=== PATIENT | female | born 1985 | race Caucasian/White ===

== ENCOUNTER 2018-11-09 12:52 | Emergency (ER) | payer MEDICAID ==
--- NOTE | 2018-11-09 14:41 | EDM.PDOC ---
ED HPI GENERAL MEDICAL PROBLEM - General Chief Complaint: Skin Complaint Stated Complaint: ABD PAIN AND INFECTION Time Seen by Provider: 11/09/18 14:05 Source of Information: Reports: Patient History Limitations: Reports: No Limitations - History of Present Illness INITIAL COMMENTS - FREE TEXT/NARRATIVE: c/o nonhealing skin wound pt at [facility] for TVR on 10-02-18, surgical drains pulled 3-4d later, still has open sores at sites of drains, saw her PCP in [place] 1w ago who rx'ed Bactrim and levo, still as 2-3d left of meds PCP reported cx positive for staph and strep pt says that she was getting better, now inc'd redness x 2d no active drainage pt had endocarditis, was in hospital 11/26 x 2.5m in [place], had MV replaced and a ring placed around TV however still had a "hole" in her TV which [place] then replaced 6w ago no infection since d/c from [place] 01/26 does not need INR checked today, "just done" - Related Data Allergies Allergy/AdvReac Type Severity Reaction Status Date / Time azithromycin Allergy Diarrhea Verified 11/09/18 13:20 [From Zithromax Z-Raza] Home Meds: Home Meds Butalbital/Aspirin/Caffeine [Fiorinal 50-325-40 MG] 1 each PO DAILY 12/19/13 [ History] DULoxetine [Cymbalta] 30 mg PO DAILY 12/19/13 [History] Gabapentin [Neurontin] 400 mg PO QID 12/19/13 [History] Acetaminophen [Tylenol Extra Strength] 100 mg PO Q8HR PRN 11/09/18 [History] Ergocalciferol (Vitamin D2) [Vitamin D2] 2,000 units PO DAILY 11/09/18 [History] Levofloxacin 500 mg PO DAILY 11/09/18 [History] Methocarbamol 500 mg PO Q12HR 11/09/18 [History] QUEtiapine Fumarate [Quetiapine Fumarate] 25 mg PO BID 11/09/18 [History] QUEtiapine [SEROquel XR] 150 mg PO DAILY 11/09/18 [History] Sulfamethoxazole/Trimethoprim [Bactrim Ds Tablet] 1 tab PO BID 11/09/18 [History ] Warfarin Sodium 2.5 mg PO DAILY 11/09/18 [History] Past Medical History Cardiovascular History: Reports: Bypass Other Cardiovascular History: 10/07/18 [employer] History: Reports: Social & Family History - Family History Family Medical History: Noncontributory - Tobacco Use Smoking Status *Q: Current Every Day Smoker Years of Tobacco use: 17 Packs/Tins Daily: 0.5 Second Hand Smoke Exposure: Yes - Caffeine Use Caffeine Use: Reports: Soda - Recreational Drug Use Recreational Drug Use: No ED ROS GENERAL - Review of Systems Review Of Systems: See Below Constitutional: Reports: No Symptoms HEENT: Reports: No Symptoms Respiratory: Reports: No Symptoms Cardiovascular: Reports: No Symptoms Endocrine: Reports: No Symptoms GI/Abdominal: Reports: No Symptoms : Reports: No Symptoms Musculoskeletal: Reports: No Symptoms Skin: Reports: Wound Neurological: Reports: No Symptoms Psychiatric: Reports: No Symptoms Hematologic/Lymphatic: Reports: No Symptoms Immunologic: Reports: No Symptoms ED EXAM, SKIN/RASH Exam: See Below Exam Limited By: No Limitations General Appearance: Alert, WD/WN, Anxious Ears: Normal External Exam Nose: Normal Inspection Psychiatric: Other (there are superficial 1 x 0.4 cm adjacent drain sites with dry granulation at base an 0.3 cm hypertrophic edges with slight redness c/w friction and/or excoriation, no clinical evidence of infection, nonhealing d/t ongoing irritation) Course - Vital Signs Last Recorded V/S: Last Vital Signs Temp 37.0 C 11/09/18 13:00 Pulse 120 H 11/09/18 13:00 Resp 18 11/09/18 13:00 BP 148/87 H 11/09/18 13:00 Pulse Ox 96 11/09/18 13:00 Departure - Departure Time of Disposition: 14:34 Disposition: Home, Self-Care 01 Condition: Good Clinical Impression: Nonhealing surgical wound - Discharge Information *PRESCRIPTION DRUG MONITORING PROGRAM REVIEWED*: Not Applicable *COPY OF PRESCRIPTION DRUG MONITORING REPORT IN PATIENT JOLLY: Not Applicable Referrals: Kelsie Aragon PA-C [Primary Care Provider] - Additional Instructions: Continue current meds. Keep surgical sites on abdomen covered with a large dressing for the next 10-14 days to prevent friction from clothing. May use baby oil, olive oil and or a moisturizer once a day to keep the skin soft. No soap or other chemicals. See your doctor in 2 weeks.
== END 2018-11-09 14:45 | disposition home or self-care (01) ==
LOC: FB.ED 12:52
DX: T81.89XA Other complications of procedures, not elsewhere classified, initial encounter (principal); Z95.2 Presence of prosthetic heart valve; Z98.890 Other specified postprocedural states
CPT/HCPCS: 99282

== ENCOUNTER 2018-11-14 18:32 | Emergency (ER) | payer MEDICAID ==
[2018-11-14] MEDS ORDERED: Doxycycline 100 MG Tab PO ONE ×2 (18:33→19:15)
[2018-11-14] MEDS ORDERED: Sulfamethoxazole/Trimethoprim 800-160 MG Tab PO ONE ×2 (18:33→19:15)
--- NOTE | 2018-11-14 19:14 | EDM.PDOC ---
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 Skin Cx shower Staff and strep. She was given Levaquin and Bactrim and the infection improved. Today, Pt came to the ed because of a circular infection with a necrotic center at her right lower extremity. 8 cm proximal of her right ankle, lateral aspect. No F/C no N/V/D no Dizziness or any other acute medical issues. Pt finished her last does of Abx 3 days ago. Pt is off drugs since 04/2018. BP 129/73 Pulse 90 RR 16 Pulse ox 98% on RA Temp 35.9 Onset Date: 11/12/18 Onset Time: 07:00 Duration: Day(s):, Getting Worse, Intermittent Location: Reports: Lower Extremity, Right (lateral aspect) Quality: Reports: Dull Severity: Mild Improves with: Reports: Rest Worsens with: Reports: Movement Context: Reports: Other (foliculitis, ) Associated Symptoms: Reports: No Other Symptoms right leg Pain Score (Numeric/FACES): 8 - Related Data Allergies Allergy/AdvReac Type Severity Reaction Status Date / Time azithromycin Allergy Diarrhea Verified 11/14/18 18:47 [From Zithromax Z-Raza] Home Meds: Home Meds Butalbital/Aspirin/Caffeine [Fiorinal 50-325-40 MG] 1 each PO DAILY 12/19/13 [ History] DULoxetine [Cymbalta] 30 mg PO DAILY 12/19/13 [History] Gabapentin [Neurontin] 400 mg PO QID 12/19/13 [History] Acetaminophen [Tylenol Extra Strength] 100 mg PO Q8HR PRN 11/09/18 [History] Ergocalciferol (Vitamin D2) [Vitamin D2] 2,000 units PO DAILY 11/09/18 [History] Methocarbamol 500 mg PO Q12HR 11/09/18 [History] QUEtiapine Fumarate [Quetiapine Fumarate] 25 mg PO BID 11/09/18 [History] QUEtiapine [SEROquel XR] 150 mg PO DAILY 11/09/18 [History] Warfarin Sodium 2.5 mg PO DAILY 11/09/18 [History] Doxycycline [Vibramycin] 100 mg PO BID #20 cap 11/14/18 [Rx] Sulfamethoxazole/Trimethoprim [Bactrim Ds Tablet] 1 each PO BID #20 tablet 11/14 [Rx] Past Medical History Cardiovascular History: Reports: Bypass Other Cardiovascular History: 10/07/18 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 CHEF History: Reports: Social & Family History - Family History Family Medical History: Noncontributory - Tobacco Use Smoking Status *Q: Current Every Day Smoker Years of Tobacco use: 20 Packs/Tins Daily: 0.5 - Caffeine Use Caffeine Use: Reports: Coffee - Recreational Drug Use Recreational Drug Use: Yes Recreational Drug Type: Reports: Methamphetamine Recreational Drug Use Frequency: Not Used In Over 6 Months ED ROS GENERAL - Review of Systems Review Of Systems: See Below Constitutional: Reports: No Symptoms HEENT: Reports: No Symptoms Respiratory: Reports: No Symptoms Cardiovascular: Reports: No Symptoms Endocrine: Reports: No Symptoms GI/Abdominal: Reports: No Symptoms : Reports: No Symptoms Musculoskeletal: Reports: No Symptoms Skin: Reports: Wound (right lower leg) Neurological: Reports: No Symptoms Psychiatric: Reports: No Symptoms Hematologic/Lymphatic: Reports: No Symptoms Immunologic: Reports: No Symptoms ED EXAM, SKIN/RASH Exam: See Below Exam Limited By: No Limitations General Appearance: Alert, WD/WN, Mild Distress Eye Exam: Bilateral Eye: Normal Inspection Ears: Normal External Exam Nose: Normal Inspection Throat/Mouth: Normal Lips, Normal Voice, No Airway Compromise, Other (poor dentition) Head: Atraumatic, Normocephalic Neck: Normal Inspection, Supple, Non-Tender Respiratory/Chest: No Respiratory Distress, Lungs Clear, Normal Breath Sounds Cardiovascular: Normal Peripheral Pulses, Regular Rate, Rhythm, No Edema, No Gallop GI/Abdominal: Normal Bowel Sounds, Soft, Non-Tender, No Organomegaly, No Distention, No Abnormal Bruit, No Mass, Pelvis Stable (Female) Exam: Deferred Rectal (Female) Exam: Deferred Back Exam: Normal Inspection, Full Range of Motion Extremities: Normal Inspection, Normal Range of Motion Neurological: Alert, Oriented, CN II-XII Intact, Normal Cognition, Normal Gait Psychiatric: Normal Affect, Normal Mood Skin: Warm, Dry, Normal Color, Wound/Incision (folicilar ) Location, Skin: Lower Extremity, Right Characteristics: Fine, Other (foliculitical) Lymphatic: No Adenopathy Course - Vital Signs Text/Narrative:: 33 y.o.w.f with a 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 Skin Cx shower Staff and strep. She was given Levaquin and Bactrim and the infection improved. Today, Pt came to the ed because of a circular infection with a necrotic center at her right lower extremity. 8 cm proximal of her right ankle, lateral aspect. No F/C no N/V/D no Dizziness or any other acute medical issues. Pt finished her last does of Abx 3 days ago. BP 129/73 Pulse 90 RR 16 Pulse ox 98% on RA Temp 35.9 PE: WNWD female, Poor dentition, well healing surgical sites at her abd. wall. Folliculitis with a necrotic center right lower leg, 8 cm prox of right ankle. Off drugs since 04/2018 Imaging not indicated Labs: Wound Culture/ gram stain sent Impression: Folliculitis right lower leg, H/O IVDA. H/O Endocarditis Tx: Bactrim, Diverticulitis, wound care.TD immunization Reexam: Improved Plan: D/C with instructions Last Recorded V/S: Last Vital Signs Temp 35.6 C 11/14/18 18:38 Pulse 90 11/14/18 18:38 Resp 16 11/14/18 18:38 BP 129/73 11/14/18 18:38 Pulse Ox 98 11/14/18 18:38 - Orders/Labs/Meds Orders: Active Orders 24 hr Category Date Time Status Vaccines to be Administered [RC] PER UNIT ROUTINE Care 11/14/18 19:19 Active CULTURE ROUTINE + SMEAR [RM] Stat Lab 11/14/18 19:04 Received Meds: Medications Discontinued Medications Generic Name Dose Route Start Last Admin Trade Name Freq PRN Reason Stop Dose Admin Diphtheria/Tetanus/Acell Pertussis 0.5 ml 11/14/18 19:19 11/14/18 19:22 Adacel IM 11/14/18 19:20 0.5 ml .ONCE ONE Administration Doxycycline Hyclate 100 mg 11/14/18 19:15 11/14/18 19:22 Vibra-Tabs PO 11/14/18 19:16 100 mg ONETIME ONE Administration Trimethoprim/Sulfamethoxazole 1 tab 11/14/18 19:15 11/14/18 19:22 Septra Ds PO 11/14/18 19:16 1 tab ONETIME ONE Administration Departure - Departure Time of Disposition: 19:16 Disposition: Home, Self-Care 01 Condition: Good Clinical Impression: H/O drug abuse, H/O bacterial endocarditis, Folliculitis - Discharge Information Prescriptions: Doxycycline [Vibramycin] 100 mg PO BID #20 cap Sulfamethoxazole/Trimethoprim [Bactrim Ds Tablet] 1 each PO BID #20 tablet Instructions: Doxycycline tablets or capsules, Sulfamethoxazole; Trimethoprim, [id number]-[id number] tablets Referrals: Kelsie Aragon PA-C [Primary Care Provider] - Forms: ED Department Discharge Additional Instructions: Please keep the wound dry and clean with soap and water, please keep the wound open at night, take the meds as recommended, please f/u, come back if your symptoms get worse acutely. Please get your INR level checked in 3-4 days. - My Orders Last 24 Hours: My Active Orders 11/14/18 19:04 CULTURE ROUTINE + SMEAR [RM] Stat 11/14/18 19:19 Vaccines to be Administered [RC] PER UNIT ROUTINE - Assessment/Plan Last 24 Hours: My Active Orders 11/14/18 19:04 CULTURE ROUTINE + SMEAR [RM] Stat 11/14/18 19:19 Vaccines to be Administered [RC] PER UNIT ROUTINE
[2018-11-14] MEDS ORDERED: Diphtheria,Pertussis(Acell),Tetanus Vaccine 0.5 ML SDV IM ONE (19:19)
== END 2018-11-14 20:08 | disposition home or self-care (01) ==
LOC: FB.ED 18:32
DX: L73.9 Follicular disorder, unspecified (principal); F17.210 Nicotine dependence, cigarettes, uncomplicated; Z88.1 Allergy status to other antibiotic agents; Z79.899 Other long term (current) drug therapy; Z23 Encounter for immunization
CPT/HCPCS: 87070; 87077; 87205; 90471; 90715; 99283; A9270

== ENCOUNTER 2018-11-22 18:16 | Emergency (ER) | payer MEDICAID ==
--- NOTE | 2018-11-22 19:28 | EDM.PDOC ---
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 She had complications of staph and strep from her chest tubes sites and was sent home on doxycycline postoperatively after the hog valve was placed. This was followed by TMP-SMX, and clindamycin tid was strated 11/15/18. Today she talked to her doctor, Kelsie Patiño in [place]. She was advised to be seen in the hospital because her heart rate was fast, 120. Yesterday and today she had 2-3 bouts of nonbloody diarrhea (concern for CDiff with 3 month of antibiotic. The past 2 days she has had an unproductive cough, experienced mild anorexia slight lightheadedness and feels weak. She is attended by her mother. At 1830 odered a influenza test. Further history patient was on repirator sfor 3 months with her severe sepsis/ endocarditis had to learn to walk all over again after she had her heart valve replaced. Treatments BUYERS' AGENT: Reports: Acetaminophen Headache with body aches Pain Score (Numeric/FACES): 10 - Related Data Allergies Allergy/AdvReac Type Severity Reaction Status Date / Time azithromycin Allergy Diarrhea Verified 11/22/18 18:39 [From Zithromax Z-Raza] Home Meds: Home Meds DULoxetine [Cymbalta] 30 mg PO DAILY 12/19/13 [History] Gabapentin [Neurontin] 300 mg PO TID 12/19/13 [History] Acetaminophen [Tylenol Extra Strength] 1,000 mg PO Q8HR PRN 11/09/18 [History] Ergocalciferol (Vitamin D2) [Vitamin D2] 2,000 units PO DAILY 11/09/18 [History] Methocarbamol 500 mg PO Q12HR 11/09/18 [History] QUEtiapine Fumarate [Quetiapine Fumarate] 25 mg PO BID 11/09/18 [History] QUEtiapine [SEROquel XR] 150 mg PO BEDTIME 11/09/18 [History] Warfarin Sodium 2.5 mg PO DAILY 11/09/18 [History] Clindamycin HCl 300 mg TID 11/22/18 [History] Guaifenesin/Pseudoephedrne HCl [Hm Mucus Rlf D ER 600-60 mg Tb] 1 each PO BID PRN 11/22/18 [History] Past Medical History Cardiovascular History: Reports: Bacterial Endocarditis, Blood Clots/VTE/DVT, Heart Valve Replacement, Other (See Below) Other Cardiovascular History: endocarditis 11/2016, open heart surgery 10/07/18 Respiratory History: Reports: PE Gastrointestinal History: Reports: GERD, Hepatitis, Other (See Below) Other Gastrointestinal History: Hepatitis C Genitourinary History: Reports: Acute Renal Failure, Dialysis, Renal Disease Other Genitourinary History: has had dialysis in past approx 1hr ago. CAMERA PERSON History: Reports: Other CAMERA PERSON History: Musculoskeletal History: Reports: Arthritis, Fibromyalgia Neurological History: Reports: CVA, Migraines Other Neuro History: 4 mini strokes Psychiatric History: Reports: ADHD, Addiction, Anxiety, Bipolar, Depression, Psych Hospitalization(s), Suicide Attempt Endocrine/Metabolic History: Reports: Hypothyroidism Hematologic History: Reports: Anticoagulation Therapy, Blood Transfusion(s) Dermatologic History: Reports: Cellulitis - Infectious Disease History Infectious Disease History: Reports: Chicken Pox, Hepatitis C, MRSA - Past Surgical History HEENT Surgical History: Reports: Oral Surgery Cardiovascular Surgical History: Reports: Vascular Surgery GI Surgical History: Reports: Colonoscopy, EGD, Other (See Below) Other GI Surgeries/Procedures: ascites Musculoskeletal Surgical History: Reports: None Social & Family History - Family History Family Medical History: Noncontributory - Tobacco Use Smoking Status *Q: Current Every Day Smoker Years of Tobacco use: 12 Packs/Tins Daily: 0.5 - Caffeine Use Caffeine Use: Reports: Energy Drinks, Soda - Recreational Drug Use Recreational Drug Use: Yes Recreational Drug Type: Reports: Methamphetamine Other Recreational Drug Type: quit 2017 ED ROS GENERAL - Review of Systems Review Of Systems: ROS reveals no pertinent complaints other than HPI. ED EXAM, GENERAL - Physical Exam Exam: See Below Free Text/Narrative:: Pleasant edentulous woman attended by her mother who looks slightly sick. No shortness of breath or chest pain or edema of her ankles or rashes. Exam Limited By: No Limitations General Appearance: Alert, Mild Distress Eye Exam: Bilateral Eye: Normal Inspection Ears: Normal External Exam, Normal Canal, Hearing Grossly Normal, Normal TMs Ear Exam: Bilateral Ear: Auricle Normal, Canal Normal, TM normal Nose: Normal Inspection, Normal Mucosa, No Blood Throat/Mouth: Normal Inspection, Normal Lips, Normal Gums, Normal Voice, No Airway Compromise, Other (Pharyngeal erythema noted mild uvula edema) Head: Atraumatic, Normocephalic Neck: Normal Inspection, Supple, Non-Tender, Full Range of Motion, Other (No bruits no cervical adenopathy) Respiratory/Chest: No Respiratory Distress, Lungs Clear, Normal Breath Sounds, No Accessory Muscle Use, Chest Non-Tender, Other (Although the nurse noted she heard rhonchi I did not hear any rhonchi or rales) Cardiovascular: Normal Peripheral Pulses, Regular Rate, Rhythm, No Edema, No Gallop, No JVD, No Murmur, No Rub, Tachycardia Peripheral Pulses: 1+: Carotid (L) (No bruits), Carotid (R), Radial (L), Radial (R) GI/Abdominal: Normal Bowel Sounds, Soft, Non-Tender, No Organomegaly, No Distention, No Abnormal Bruit (Female) Exam: Deferred Rectal (Female) Exam: Deferred Back Exam: Normal Inspection, Full Range of Motion Extremities: Normal Inspection, Normal Range of Motion, Non-Tender, No Pedal Edema, Normal Capillary Refill Neurological: Alert, Oriented, CN II-XII Intact, Normal Cognition, Normal Gait, Normal Reflexes, No Motor/Sensory Deficits Psychiatric: Normal Affect, Normal Mood Skin Exam: Warm, Dry, Intact, Normal Color, No Rash, Other (2 chest tube sites anterior upper abdomen infra costal nontender no erythema except for incisional healing no discharge) Lymphatic: No Adenopathy EKG INTERPRETATION EKG Date: 11/22/18 Time: 19:25 Rhythm: NSR OR/PQ Interval: OR interval 24 51st degree block EKG Interpretation Comments: Normal sinus rhythm. T-wave inverted in lead 3, aVR, V1 and isoelectric in V3. No ST changes Course - Vital Signs Last Recorded V/S: Last Vital Signs Temp 37.1 C 11/22/18 18:32 Pulse 110 H 11/22/18 18:32 Resp 20 11/22/18 18:32 BP 130/85 11/22/18 18:32 Pulse Ox 95 11/22/18 18:32 - Orders/Labs/Meds Orders: Active Orders 24 hr Category Date Time Status EKG Documentation Completion [RC] ASDIRECTED Care 11/22/18 19:22 Active ANTI-DNASE B STREP ANTIBODIES Urgent Lab 11/22/18 20:08 Received CULTURE BLOOD [BC] Urgent Lab 11/22/18 19:35 Received CULTURE BLOOD [BC] Urgent Lab 11/22/18 19:45 Received CULTURE STREP A CONFIRMATION [] Stat Lab 11/22/18 19:20 Results STREP SCRN A RAPID W CULT CONF [] Stat Lab 11/22/18 19:20 Results Blood Culture x2 Reflex Set [OM.PC] Urgent Oth 11/22/18 19:22 Ordered EKG 12 Lead [EK] Routine Ther 11/22/18 19:22 Ordered Labs: Laboratory Tests 11/22/18 11/22/18 11/22/18 Range/Units 19:35 19:35 19:35 WBC 5.2 (4.5-12.0) X10-3/uL RBC 4.23 (3.23-5.20) x10(6)uL Hgb 12.8 (11.5-15.5) g/dL Hct 38.4 (30.0-51.3) % MCV 90.7 (80-96) fL MCH 30.3 (27.7-33.6) pg MCHC 33.4 (32.2-35.4) g/dL RDW 14.9 (11.5-15.5) % Plt Count 152 (125-369) X10(3)uL MPV 8.5 (7.4-10.4) fL Neut % (Auto) 69.1 (46-82) % Lymph % (Auto) 16.2 (13-37) % [place] % (Auto) 12.6 H (4-12) % Eos % (Auto) 1 (1.0-5.0) % Baso % (Auto) 1 (0-2) % Neut # (Auto) 3.6 (1.6-8.3) # Lymph # (Auto) 0.8 (0.6-5.0) # [place] # (Auto) 0.7 (0.0-1.3) # Eos # (Auto) 0.1 (0.0-0.8) # Baso # (Auto) 0.0 (0.0-0.2) # PT (8.7-11.1) INR (0.89-1.13) Lactic Acid 0.7 (0.4-2.2) mmol/L C-Reactive Protein 1.3 H (0.5-0.9) mg/dL 11/22/18 Range/Units 19:35 WBC (4.5-12.0) X10-3/uL RBC (3.23-5.20) x10(6)uL Hgb (11.5-15.5) g/dL Hct (30.0-51.3) % MCV (80-96) fL MCH (27.7-33.6) pg MCHC (32.2-35.4) g/dL RDW (11.5-15.5) % Plt Count (125-369) X10(3)uL MPV (7.4-10.4) fL Neut % (Auto) (46-82) % Lymph % (Auto) (13-37) % [place] % (Auto) (4-12) % Eos % (Auto) (1.0-5.0) % Baso % (Auto) (0-2) % Neut # (Auto) (1.6-8.3) # Lymph # (Auto) (0.6-5.0) # [place] # (Auto) (0.0-1.3) # Eos # (Auto) (0.0-0.8) # Baso # (Auto) (0.0-0.2) # PT 11.0 (8.7-11.1) INR 1.13 (0.89-1.13) Lactic Acid (0.4-2.2) mmol/L C-Reactive Protein (0.5-0.9) mg/dL Meds: Medications Discontinued Medications Generic Name Dose Route Start Last Admin Trade Name Freq PRN Reason Stop Dose Admin Tramadol HCl 50 mg 11/22/18 21:23 Ultram PO 11/22/18 21:24 ONETIME ONE Departure - Departure Time of Disposition: 19:25 (Patient's sinus tachycardia is bothersome. 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 She may have had a strep throat and not treated earlier in the month fact she has sore throat the first part of the month. This possible that she will pick this up on her strep test today but she has anti-DNase B test pending. Clindamycin that she is taking chronically antibiotic post op. Chel doxycyclin, then TMP/SMX, then strated 11/15/18 to 11/16/18/started on clindamycin. Since 10/07/18 valve replacement shehas been oan antibiotic and the ususal bacteria should be covered by her clindamycin (started 11/15/18 or 11/16/18) . Clindamycin sometimes has resistance to staph (10%) but I am not aware of strep resistance to clnidamycin, but this may be possible, since she was treated in a [facility], [place], where all sorts of unusual gram neg or gram postiive bacteria are possibly present from all over the worlds. It is also possible that am infection from" something else" ( a different bacteria) may be going on. I did a CRP, and also lactate, and blood cultures and a antiDNA B ase test to make sure that she does not have an unusual strept that has not been treated by clindamycin prophylaxis. My suspicion is that she has an new or chronic partilly treated infection athat need more ID inpuat. So I will be calling [place] once the first round of preliminary tests are done. Anti-DNase B pending to rule out strep that might occur to him last month. Been treated. She had been on doxycycline and TMP SMXboth these medicines have a poor track record for treating strep). So is possible she could have experienced an intercurrent episode of strep without being adequately treated. The clindamycin should cover strep. Spoken to [facility] Dr.JAYVARGIYAVI reginald [place]. He recommended 3 tests pro-calcitonin daily. If they did not become elevated most likely this is far worse. Blood cultures 2 cultures ascending 2 different hours. For this patient has been told never to draw blood from her left arm she does not want this done so second set of blood cultures was drawn from her right arm. Evaluation of diarrhea to rule out Clostridium difficile. She has recurrence of shortness of breath, chest pain, tiredness, weakness gets worse, diaphoresis, elevated temperature and this suggests is a bacterial component and further ED/clinic evaluation is an order. Perhaps may need to go back to [facility]. Patient was not given ibuprofen because "too hard on her liver. Patient also BC an echo of her heart to look for vegetations if her status gets worse. We have this report these [facility] Disposition: Home, Self-Care 01 Condition: Good Clinical Impression: Sinus tachycardia, First degree heart block by electrocardiography, History of drug abuse in remission, History of endocarditis, H/O aortic valve replacement, Anticoagulation adequate - Discharge Information *PRESCRIPTION DRUG MONITORING PROGRAM REVIEWED*: Not Applicable *COPY OF PRESCRIPTION DRUG MONITORING REPORT IN PATIENT JOLLY: Not Applicable Referrals: PCP,Not In Area [Primary Care Provider] - Forms: ED Department Discharge Additional Instructions: I spoke to [facility] infectious disease Dr. Webber who recommended the following 1) get to look for blood cultures 2 sets from each arm 2) Pro-calcitonin daily for 3 days. If it's virus" procalcitonin will not be elevated. But if it is elevated, that means you have a bacterial infection 3) continue with the same antibiotics clindamycin for MRSA 4) CRP is not affect appropriate blood test 5) if you're worse in 2-3 days with increased fever, increased shortness of breath, chest pain, swelling of the legs, increased weakness Then you need to see your doctor and/or back to emergency room. At that point these symptoms would suggest recurrent endocarditis. Then further consultation is needed with [facility] would be appropriate. Have your Kelsie ALVAREZ order an Echo of your heart. - My Orders Last 24 Hours: My Active Orders 11/22/18 19:20 CULTURE STREP A CONFIRMATION [RM] Stat STREP SCRN A RAPID W CULT CONF [RM] Stat 11/22/18 19:22 EKG Documentation Completion [RC] ASDIRECTED Blood Culture x2 Reflex Set [OM.PC] Urgent EKG 12 Lead [EK] Routine 11/22/18 19:35 CULTURE BLOOD [BC] Urgent 11/22/18 19:45 CULTURE BLOOD [BC] Urgent 03/14/19 20:08 ANTI-DNASE B STREP ANTIBODIES Urgent - Assessment/Plan Last 24 Hours: My Active Orders 11/22/18 19:20 CULTURE STREP A CONFIRMATION [RM] Stat STREP SCRN A RAPID W CULT CONF [RM] Stat 11/22/18 19:22 EKG Documentation Completion [RC] ASDIRECTED Blood Culture x2 Reflex Set [OM.PC] Urgent EKG 12 Lead [EK] Routine 11/22/18 19:35 CULTURE BLOOD [BC] Urgent 11/22/18 19:45 CULTURE BLOOD [BC] Urgent 11/22/18 20:08 ANTI-DNASE B STREP ANTIBODIES Urgent
[2018-11-22] MEDS ORDERED: traMADol 50 MG Tab PO ONE (21:23)
== END 2018-11-22 21:46 | disposition home or self-care (01) ==
LOC: FB.ED 18:16
DX: I44.0 Atrioventricular block, first degree (principal); R00.0 Tachycardia, unspecified; F19.11 Other psychoactive substance abuse, in remission; Z95.2 Presence of prosthetic heart valve; F17.210 Nicotine dependence, cigarettes, uncomplicated; Z88.1 Allergy status to other antibiotic agents; Z79.899 Other long term (current) drug therapy
CPT/HCPCS: 36415; 83605; 85025; 85610; 86140; 86215; 87040; 87081; 87804; 87880; 93005; 99283; A9270

== ENCOUNTER 2018-12-21 23:48 | Emergency (ER) | payer MEDICAID | END 2018-12-22 00:20 | disposition left against medical advice (07) | LOC: FB.ED 23:48 | DX: Z53.21 Procedure and treatment not carried out due to patient leaving prior to being seen by health care provider (principal) ==

== ENCOUNTER 2018-12-29 19:05 | Emergency (ER) | payer MEDICAID ==
--- NOTE | 2018-12-29 20:05 | EDM.PDOC ---
ED HPI GENERAL MEDICAL PROBLEM - General Time Seen by Provider: 12/29/18 19:05 Source of Information: Reports: Patient, Family History Limitations: Reports: No Limitations - History of Present Illness INITIAL COMMENTS - FREE TEXT/NARRATIVE: 33 y.o.w.f came with her friend fro INR check. Pt missed her appointment on 12/19, Pt has no physical complains. BP 125/61 RR 17 Pulse ox 98% on RA Temp 36.4 pulse 81 Onset Date: 12/19/18 Onset Time: 06:00 Duration: Week(s): Location: Reports: Generalized Quality: Reports: Other Improves with: Reports: None Worsens with: Reports: None Associated Symptoms: Reports: No Other Symptoms - Related Data Allergies Allergy/AdvReac Type Severity Reaction Status Date / Time azithromycin Allergy Diarrhea Verified 12/30/18 01:38 [From Zithromax Z-Raza] Home Meds: Home Meds DULoxetine [Cymbalta] 30 mg PO DAILY 12/19/13 [History] Gabapentin [Neurontin] 300 mg PO TID 12/19/13 [History] Acetaminophen [Tylenol Extra Strength] 1,000 mg PO Q8HR PRN 11/09/18 [History] Ergocalciferol (Vitamin D2) [Vitamin D2] 2,000 units PO DAILY 11/09/18 [History] Methocarbamol 500 mg PO Q12HR 11/09/18 [History] QUEtiapine Fumarate [Quetiapine Fumarate] 25 mg PO BID 11/09/18 [History] QUEtiapine [SEROquel XR] 150 mg PO BEDTIME 11/09/18 [History] Warfarin Sodium 2.5 mg PO DAILY 11/09/18 [History] Clindamycin HCl 300 mg TID 11/22/18 [History] Guaifenesin/Pseudoephedrne HCl [Hm Mucus Rlf D ER 600-60 mg Tb] 1 each PO BID PRN 11/22/18 [History] Past Medical History Cardiovascular History: Reports: Bacterial Endocarditis, Blood Clots/VTE/DVT, Heart Valve Replacement, Other (See Below) Other Cardiovascular History: endocarditis 11/2016, open heart surgery 10/07/18 Respiratory History: Reports: PE Gastrointestinal History: Reports: GERD, Hepatitis, Other (See Below) Other Gastrointestinal History: Hepatitis C Genitourinary History: Reports: Acute Renal Failure, Dialysis, Renal Disease Other Genitourinary History: has had dialysis in past approx 1hr ago. 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: Musculoskeletal History: Reports: Arthritis, Fibromyalgia Neurological History: Reports: CVA, Migraines Other Neuro History: 4 mini strokes Psychiatric History: Reports: ADHD, Addiction, Anxiety, Bipolar, Depression, Psych Hospitalization(s), Suicide Attempt Endocrine/Metabolic History: Reports: Hypothyroidism Hematologic History: Reports: Anticoagulation Therapy, Blood Transfusion(s) Dermatologic History: Reports: Cellulitis - Infectious Disease History Infectious Disease History: Reports: Chicken Pox, Hepatitis C, MRSA - Past Surgical History HEENT Surgical History: Reports: Oral Surgery Cardiovascular Surgical History: Reports: Vascular Surgery GI Surgical History: Reports: Colonoscopy, EGD, Other (See Below) Other GI Surgeries/Procedures: ascites Musculoskeletal Surgical History: Reports: None Social & Family History - Family History Family Medical History: Noncontributory - Caffeine Use Caffeine Use: Reports: Energy Drinks, Soda ED ROS GENERAL - Review of Systems Review Of Systems: See Below Constitutional: Reports: No Symptoms HEENT: Reports: No Symptoms Respiratory: Reports: No Symptoms Cardiovascular: Reports: No Symptoms Endocrine: Reports: No Symptoms GI/Abdominal: Reports: No Symptoms : Reports: No Symptoms Musculoskeletal: Reports: No Symptoms Skin: Reports: No Symptoms Neurological: Reports: No Symptoms Psychiatric: Reports: No Symptoms Hematologic/Lymphatic: Reports: No Symptoms Immunologic: Reports: No Symptoms ED EXAM, GENERAL - Physical Exam Exam: See Below Exam Limited By: No Limitations General Appearance: Alert, WD/WN, No Apparent Distress Eye Exam: Bilateral Eye: Normal Inspection Ears: Normal External Exam Ear Exam: Bilateral Ear: Auricle Normal Nose: Normal Inspection, Normal Mucosa Throat/Mouth: Normal Inspection, Normal Lips, Normal Voice, No Airway Compromise Head: Atraumatic, Normocephalic Neck: Normal Inspection, Supple, Non-Tender Respiratory/Chest: No Respiratory Distress, Lungs Clear, Normal Breath Sounds, Chest Non-Tender Cardiovascular: Normal Peripheral Pulses, Regular Rate, Rhythm, No Edema, No Gallop, No Murmur, No Rub Peripheral Pulses: 2+: Radial (L) GI/Abdominal: Normal Bowel Sounds (Female) Exam: Deferred Rectal (Female) Exam: Deferred Back Exam: Normal Inspection Extremities: Normal Inspection Neurological: Alert, Oriented, CN II-XII Intact Psychiatric: Normal Affect, Normal Mood Skin Exam: Warm, Dry, Intact, Normal Color, No Rash Lymphatic: No Adenopathy Course - Vital Signs Text/Narrative:: 33 y.o.w.f came with her friend fro INR check. Pt missed her appointment on 12/19, Pt has no physical complains. BP 125/61 RR 17 Pulse ox 98% on RA Temp 36.4 pulse 81 PE: WNWD W F here for INR lab test only Lab check INR: 1.01 Impression: Subtherapeutic INR level Tx: None Reexam: Pt was stable in the ed Plan: D/C with instructions Last Recorded V/S: Last Vital Signs Temp 36.7 C 12/29/18 20:10 Pulse 90 12/29/18 20:10 Resp 17 12/29/18 20:10 BP 122/60 12/29/18 20:10 Pulse Ox 97 12/29/18 20:10 - Orders/Labs/Meds Labs: Laboratory Tests 12/29/18 Range/Units 19:25 PT 9.8 (8.7-11.1) INR 1.01 (0.89-1.13) Departure - Departure Time of Disposition: 20:04 Disposition: Home, Self-Care 01 Condition: Good Clinical Impression: Subtherapeutic international normalized ratio (INR) - Discharge Information Instructions: Prothrombin Time, International Normalized Ratio Test Referrals: PCP,None [Primary Care Provider] - Forms: ED Department Discharge Additional Instructions: Please f/u with your PMD this Monday because your INR level is subtherapeutic.
== END 2018-12-29 20:10 | disposition home or self-care (01) ==
LOC: FB.ED 19:05
DX: R79.1 Abnormal coagulation profile (principal); K21.9 Gastro-esophageal reflux disease without esophagitis; E03.9 Hypothyroidism, unspecified; F31.9 Bipolar disorder, unspecified; F41.9 Anxiety disorder, unspecified; Z79.899 Other long term (current) drug therapy; Z88.1 Allergy status to other antibiotic agents; Z79.01 Long term (current) use of anticoagulants
CPT/HCPCS: 36415; 85610; 99283

== ENCOUNTER 2019-01-03 17:35 | Emergency (ER) | payer MEDICAID ==
--- NOTE | 2019-01-03 19:16 | EDM.PDOC ---
ED HPI GENERAL MEDICAL PROBLEM - General Chief Complaint: Lower Extremity Injury/Pain Stated Complaint: L FOOT PAIN Time Seen by Provider: 01/03/19 18:40 Source of Information: Reports: Patient History Limitations: Reports: No Limitations - History of Present Illness INITIAL COMMENTS - FREE TEXT/NARRATIVE: 33-year-old female who reports that she will get ADM with pain on the top of her left foot. It was worse with flexing or extending her foot at the ankle and with moving her toes. She had no known trauma to the area. He has had pain similar to this in the past but it has not lasted this long. She did notice a lump and what she felt was a bruise on the top of her left foot area it is a sharp pain with tingling going up her left lower leg. She has no calf pain. The pain is a rated by her as a 9/10. No fevers. No chills. No chest pain. No palpitations. No difficulty breathing. There are no other associated signs or symptoms. There are no other modifying factors. 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: Nothing - Related Data Allergies Allergy/AdvReac Type Severity Reaction Status Date / Time azithromycin Allergy Diarrhea Verified 01/03/19 18:44 [From Zithromax Z-Raza] Home Meds: Home Meds DULoxetine [Cymbalta] 30 mg PO DAILY 12/19/13 [History] Gabapentin [Neurontin] 300 mg PO TID 12/19/13 [History] Acetaminophen [Tylenol Extra Strength] 1,000 mg PO Q8HR PRN 11/09/18 [History] Methocarbamol 500 mg PO Q12HR 11/09/18 [History] QUEtiapine Fumarate [Quetiapine Fumarate] 25 mg PO BID 11/09/18 [History] Warfarin Sodium 5 mg PO DAILY 11/09/18 [History] QUEtiapine Fumarate [Seroquel] 200 mg PO BEDTIME 01/03/19 [History] Past Medical History Cardiovascular History: Reports: Bacterial Endocarditis, Blood Clots/VTE/DVT, 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 [employer] History: Reports: Other (See Below) Other [employer] History: Musculoskeletal History: Reports: Arthritis, Fibromyalgia Neurological History: Reports: CVA, Migraines Other Neuro History: 4 mini strokes Psychiatric History: Reports: ADHD, Addiction, Anxiety, Bipolar, Depression, Psych Hospitalization(s), Suicide Attempt Endocrine/Metabolic History: Reports: Hypothyroidism Hematologic History: Reports: Anticoagulation Therapy (On Coumadin but is not compliant with this medication.), Blood Transfusion(s) - Infectious Disease History Infectious Disease History: Reports: Chicken Pox, Hepatitis C, MRSA - Past Surgical History HEENT Surgical History: Reports: Oral Surgery Cardiovascular Surgical History: Reports: Vascular Surgery GI Surgical History: Reports: Colonoscopy, EGD, Other (See Below) Other GI Surgeries/Procedures: ascites Social & Family History - Tobacco Use Smoking Status *Q: Current Every Day Smoker Years of Tobacco use: 22 Packs/Tins Daily: 1 - Caffeine Use Caffeine Use: Reports: Energy Drinks, Soda - Alcohol Use Alcohol Use History: No - Recreational Drug Use Recreational Drug Use: Yes Drug Use in Last 12 Months: Yes Recreational Drug Last Use: April 2018 Recreational Drug Route: Reports: Intravenous (Methamphetamines) - Living Situation & Occupation Social History Comment: Here with her family. Review of Systems - Review of Systems Review Of Systems: See Below Constitutional: Reports: No Symptoms Eyes: Reports: No Symptoms Ears: Reports: No Symptoms Nose: Reports: No Symptoms Mouth/Throat: Reports: No Symptoms Respiratory: Reports: Cough (Chronic) Cardiovascular: Reports: No Symptoms GI/Abdominal: Reports: No Symptoms Genitourinary: Reports: No Symptoms Musculoskeletal: Reports: Other (Left foot pain as above) Skin: Reports: Lumps (On top of left foot with questionable bruising) Neurological: Reports: No Symptoms ED EXAM, GENERAL - Physical Exam Exam: See Below Exam Limited By: No Limitations General Appearance: Alert, WD/WN, No Apparent Distress Eye Exam: Bilateral Eye: EOMI, Normal Inspection, PERRL Ears: Normal External Exam, Hearing Grossly Normal Nose: Normal Inspection, Normal Mucosa Throat/Mouth: Normal Inspection, Normal Voice, No Airway Compromise Head: Atraumatic, Normocephalic Neck: Normal Inspection, Supple, Non-Tender, Full Range of Motion Respiratory/Chest: No Respiratory Distress, Lungs Clear, Normal Breath Sounds, No Accessory Muscle Use, Chest Non-Tender Cardiovascular: Normal Peripheral Pulses, Regular Rate, Rhythm, No Murmur Peripheral Pulses: 2+: Radial (L), Radial (R), Dorsalis Pedis (L), Dorsalis Pedis (R) GI/Abdominal: Normal Bowel Sounds, Soft, Non-Tender Back Exam: Normal Inspection Extremities: Normal Capillary Refill, Other (Tender on top of left foot with questionable ganglion cyst. No cellulitis. No Pain.) Neurological: Alert, Oriented, CN II-XII Intact, Normal Cognition, No Motor/ Sensory Deficits Skin Exam: Warm, Dry, Intact, Normal Color, No Rash Course - Vital Signs Last Recorded V/S: Last Vital Signs Temp 37.1 C 01/03/19 18:30 Pulse 88 01/03/19 18:30 Resp 16 01/03/19 18:30 BP 112/80 01/03/19 18:30 Pulse Ox 96 01/03/19 18:30 - Orders/Labs/Meds Orders: Active Orders 24 hr Category Date Time Status Foot Comp Min 3V Lt [CR] Stat Exams 01/03/19 18:53 Taken Labs: Laboratory Tests 01/03/19 Range/Units 19:23 PT 11.0 (8.7-11.1) INR 1.13 (0.89-1.13) - Radiology Interpretation Free Text/Narrative:: X-ray of left foot showed no fracture or any acute abnormality. Departure - Departure Time of Disposition: 19:45 Disposition: Home, Self-Care 01 Condition: Good Clinical Impression: Left foot pain, Ganglion cyst of left foot - Discharge Information Referrals: Kelsie Aragon PA-C [Primary Care Provider] - Forms: ED Department Discharge Additional Instructions: The x-ray of her left foot showed no acute abnormality and specifically there is no fracture. Your INR was 1.1. As we discussed, I think that the lump on the top of your left foot represents a ganglion cyst and that is the cause of your pain. You may take Tylenol as milligrams by mouth every 6 hours as needed for pain. You may use an Bobby wrap for comfort and support. I have sent a referral to Dr. Luu, orthopedist at [place], and they should call you to arrange an appointment to see Dr. Luu. Avoid prolonged walking. Back to the emergency department for redness, increased swelling, fever or any other concerning sign or symptom. - My Orders Last 24 Hours: My Active Orders 01/03/19 18:53 Foot Comp Min 3V Lt [CR] Stat - Assessment/Plan Last 24 Hours: My Active Orders 01/03/19 18:53 Foot Comp Min 3V Lt [CR] Stat
--- NOTE | 2019-01-04 10:52 | CR ---
INDICATION: Left foot pain with questionable injury - no known recent injury. LEFT FOOT: Three views of the left foot were obtained, revealing prominence overlying the metatarsotarsal joint area dorsally, which may represent a small mass or soft tissue swelling locally in that area. No underlying bone or joint abnormality was identified. MTDD
== END 2019-01-03 20:10 | disposition home or self-care (01) ==
LOC: FB.ED 17:35
DX: M67.472 Ganglion, left ankle and foot (principal); K21.9 Gastro-esophageal reflux disease without esophagitis; E03.9 Hypothyroidism, unspecified; F17.210 Nicotine dependence, cigarettes, uncomplicated; Z79.899 Other long term (current) drug therapy
CPT/HCPCS: 36415; 73630-LT; 85610; 99283-25

== ENCOUNTER 2019-01-15 11:06 | Day surgery (SDC) | payer MEDICAID ==
[~2019-01-15 11:06] MED LIST: Clindamycin in 0.9 % Sod Chlor 900 MG/50 ML BAG IV ONE; Clindamycin in 0.9 % Sod Chlor 900 MG/50 ML BAG IV SCH; Lactated Ringers 1,000 ML IV SCH
[2019-01-15] MEDS ORDERED: Midazolam 1 MG/ML 2 ML SDV IV ONE (11:07)
[2019-01-15] MEDS ORDERED: fentaNYL 100 MCG/2 ML SDV IV ONE (11:07)
[2019-01-15] MEDS ORDERED: Propofol 200 MG/20 ML SDV IV ONE (11:07)
[2019-01-15] MEDS ORDERED: ceFAZolin 1 GM in Sodium Chloride 0.9% 50 ML IV ONE (12:30)
[2019-01-15] MEDS ORDERED: Bupivacaine 0.5% 30 ML SDV ONE (13:04)
--- NOTE | 2019-01-15 14:42 | OR ---
DATE OF OPERATION: 01/15/2019 SURGEON: Madi Luu DO PREOPERATIVE DIAGNOSIS: Left foot ganglion cyst. POSTOPERATIVE DIAGNOSIS: Left foot ganglion cyst. PROCEDURE: Left foot ganglion cyst excision. VICE PRINCIPAL: Juliana Norton NP. Nurse practitioner, Juliana Norton NP, played an essential role in assisting in this case, helping to position the patient, retract structures as needed, as well as suturing and cutting sutures as indicated. Her presence improved patient's safety and decreased operative time. ANESTHESIA: MAC local. FLUID: Lactated Ringer's solution. ESTIMATED BLOOD LOSS: 5 mL. COMPLICATIONS: None. SPECIMEN: Ganglion. DISCHARGE DISPOSITION: Stable to PACU. INDICATION FOR THE PROCEDURE: The patient was seen preoperatively by myself in the clinic. She had pain over the dorsum of her left foot consistent with a mobile compressible mass, which would be consistent with a ganglion cyst. Risks and benefits of the procedure were explained to the patient. Informed consent was obtained. DETAILS OF PROCEDURE: The patient was seen preoperatively by myself and the Anesthesia staff in the preoperative holding area, where the operative site was marked. She was brought to the operative suite by the Anesthesia staff, where conscious sedation was administered. The left lower extremity was then prepped and draped in a sterile manner. Time-out was called identifying the correct patient, the correct procedure, the correct site, and that the antibiotics had been begun within the appropriate period of time. Approximately, 5 mL of local anesthetic was infiltrated in the area of the ganglion. Incision was made and measured approximately 3 cm longitudinally of the ganglion. I then used pickups and Metzenbaum scissors to carefully dissect to the ganglion. I found, what appeared to be, a small ganglion cyst with a stalk and then followed the stalk down and then removed the base of the stalk. I also examined another area that did not appear to have a ganglion. The ganglion was submitted for specimen. I used bipolar electrocautery to stop some bleeding around the area of the stalk. We then irrigated with Betadine-infused irrigation and then closed with 3-0 horizontal mattress sutures, which were nylon. She then had a sterile dressing and then was allowed to awaken from conscious sedation and then taken to the PACU in a stable condition. /[id number] BS/MODL
== END 2019-01-15 14:18 | disposition home or self-care (01) ==
LOC: FB.SDS 11:06
PROVIDERS: ATTEND Orthopaedic Surgery
DX: M67.472 Ganglion, left ankle and foot (principal); F90.9 Attention-deficit hyperactivity disorder, unspecified type; F31.9 Bipolar disorder, unspecified; K21.9 Gastro-esophageal reflux disease without esophagitis; B19.20 Unspecified viral hepatitis C without hepatic coma; E55.9 Vitamin D deficiency, unspecified; F17.200 Nicotine dependence, unspecified, uncomplicated; I38 Endocarditis, valve unspecified; Z79.01 Long term (current) use of anticoagulants; Z79.82 Long term (current) use of aspirin; Z79.891 Long term (current) use of opiate analgesic; Z88.1 Allergy status to other antibiotic agents; Z88.0 Allergy status to penicillin; Z91.048 Other nonmedicinal substance allergy status; Z99.11 Dependence on respirator [ventilator] status; Z95.4 Presence of other heart-valve replacement
CPT/HCPCS: 28090; 36415; 80305; 81025; 85610; J2001; J2250; J2704; J3010; J3490; J7120; 88304

== ENCOUNTER 2019-01-16 15:27 | Emergency (ER) | payer MEDICAID ==
[2019-01-16] MEDS ORDERED: Morphine 2 MG/ML Syringe IM ONE (15:46)
--- NOTE | 2019-01-16 15:50 | EDM.PDOC ---
ED HPI GENERAL MEDICAL PROBLEM - General Chief Complaint: Lower Extremity Injury/Pain Stated Complaint: LEFT FOOT PAIN Time Seen by Provider: 01/16/19 15:27 Source of Information: Reports: Patient, Family History Limitations: Reports: Intoxication - History of Present Illness INITIAL COMMENTS - FREE TEXT/NARRATIVE: 33 y.o.w.f with a H/o IVDA had surgery yesterday at her right foot. A ganglion was removed. Pt came to the ED because of severe pain at her right foot. Tylenol /Motrin and Ultram did not help. She is not allowed to get a narcotic prescription as per her PMD. No N/V/D, no SOB no CP. The patient injured her right Thumb on the car contreras while getting out of her friend's car. No other acute med issues. BP 128/72 RR 15 Pulse ox 96% on RA Pulse 71 Temp 36.8 Onset Date: 01/16/19 Onset Time: 11:00 Duration: Hour(s): Location: Reports: Generalized Quality: Reports: Burning Severity: Mild Improves with: Reports: Medication Worsens with: Reports: Other Context: Reports: Other (ETOH abuse) Associated Symptoms: Reports: Shortness of Breath, Weakness Left foot Pain Score (Numeric/FACES): 9 - Related Data Allergies Allergy/AdvReac Type Severity Reaction Status Date / Time adhesive tape Allergy Other Verified 01/16/19 15:36 azithromycin Allergy Diarrhea Verified 01/16/19 15:36 [From Zithromax Z-Raza] cefazolin Allergy Other Verified 01/16/19 15:36 Penicillins Allergy Other Verified 01/16/19 15:36 Home Meds: Home Meds DULoxetine [Cymbalta] 60 mg PO DAILY 12/19/13 [History] Gabapentin [Neurontin] 300 mg PO DAILY 12/19/13 [History] Acetaminophen [Tylenol Extra Strength] 1,000 mg PO Q8HR PRN 11/09/18 [History] Methocarbamol 500 mg PO Q12HR PRN 11/09/18 [History] QUEtiapine Fumarate [Quetiapine Fumarate] 25 mg PO BID 11/09/18 [History] Aspirin 81 mg PO DAILY 01/14/19 [History] QUEtiapine Fumarate [Quetiapine Fumarate] 200 mg PO BEDTIME 01/14/19 [History] traMADol HCl [Tramadol HCl] 50 mg PO TID PRN 01/16/19 [History] Past Medical History HEENT History: Reports: Allergic Rhinitis Cardiovascular History: Reports: Bacterial Endocarditis, Blood Clots/VTE/DVT, Heart Valve Replacement, Other (See Below) Other Cardiovascular History: endocarditis 11/2016, open heart surgery 10/07/18, [employer] Respiratory History: Reports: PE Gastrointestinal History: Reports: GERD, Hepatitis, Other (See Below) Other Gastrointestinal History: Hepatitis C, ASCITES Genitourinary History: Reports: Acute Renal Failure, Dialysis, Renal Disease Other Genitourinary History: DIALYSIS, LEEP PROCEDURE CARPENTER PROTOTYPE History: Reports: Other (See Below) Other CARPENTER PROTOTYPE History: Musculoskeletal History: Reports: Arthritis, Fibromyalgia Neurological History: Reports: CVA, Migraines Other Neuro History: 4 mini strokes Psychiatric History: Reports: ADHD, Addiction, Anxiety, Bipolar, Depression, Psych Hospitalization(s), Suicide Attempt Endocrine/Metabolic History: Reports: Hypothyroidism Hematologic History: Reports: Anticoagulation Therapy, Blood Transfusion(s), Other (See Below) Other Hematologic History: VITAMIN E DEFICIENCY Immunologic History: Reports: Other (See Below) Other Immunologic History: HEPATITIS C Dermatologic History: Reports: Cellulitis - Infectious Disease History Infectious Disease History: Reports: Hepatitis C - Past Surgical History HEENT Surgical History: Reports: Oral Surgery Cardiovascular Surgical History: Reports: Vascular Surgery GI Surgical History: Reports: Colonoscopy, EGD, Other (See Below) Other GI Surgeries/Procedures: ascites Female Surgical History: Reports: Breast Biopsy, D&C, Tubal Ligation Musculoskeletal Surgical History: Reports: None, Other (See Below) Other Musculoskeletal Surgeries/Procedures:: Ganglion cyst removal of left foot Social & Family History - Family History Family Medical History: Noncontributory - Tobacco Use Smoking Status *Q: Current Every Day Smoker Years of Tobacco use: 20 Packs/Tins Daily: 0.5 - Caffeine Use Caffeine Use: Reports: Soda - Recreational Drug Use Recreational Drug Use: No Review of Systems - Review of Systems Review Of Systems: See Below Constitutional: Reports: Weakness Eyes: Reports: No Symptoms Ears: Reports: No Symptoms Nose: Reports: No Symptoms Mouth/Throat: Reports: No Symptoms Respiratory: Reports: Shortness of Breath Cardiovascular: Reports: No Symptoms GI/Abdominal: Reports: No Symptoms Genitourinary: Reports: No Symptoms Musculoskeletal: Reports: No Symptoms Skin: Reports: No Symptoms Neurological: Reports: No Symptoms Psychiatric: Reports: No Symptoms ED EXAM, GENERAL - Physical Exam Exam: See Below Exam Limited By: No Limitations General Appearance: Alert, WD/WN, Mild Distress Eye Exam: Bilateral Eye: Normal Inspection Ears: Normal External Exam, Normal Canal Ear Exam: Bilateral Ear: Auricle Normal Nose: Normal Inspection, Normal Mucosa Throat/Mouth: Normal Lips, Normal Voice, No Airway Compromise, Other (poor dentition) Head: Atraumatic, Normocephalic Neck: Normal Inspection, Supple, Non-Tender Respiratory/Chest: No Respiratory Distress, Lungs Clear, Normal Breath Sounds, Chest Non-Tender Cardiovascular: Normal Peripheral Pulses, Regular Rate, Rhythm, No Edema Peripheral Pulses: 1+: Brachial (L) GI/Abdominal: Normal Bowel Sounds, Soft, Non-Tender, No Organomegaly, Pelvis Stable (Female) Exam: Deferred Rectal (Female) Exam: Deferred Back Exam: Normal Inspection, Full Range of Motion Extremities: Normal Range of Motion, Normal Capillary Refill, Other (S/P Surgery right foot) Neurological: Alert, Oriented, CN II-XII Intact, Normal Cognition, Abnormal Gait (because of right foot pain S/P surgery) Psychiatric: Normal Affect, Normal Mood Skin Exam: Warm, Dry, Wound/Incision (abrasion right thumb, minor) Lymphatic: No Adenopathy Course - Vital Signs Text/Narrative:: 33 y.o.w.f with a H/o IVDA had surgery yesterday at her right foot. A ganglion was removed. Pt came to the ED because of severe pain at her right foot. Tylenol /Motrin and Ultram did not help. She is not allowed to get a narcotic prescription as per her PMD. No N/V/D, no SOB no CP. The patient injured her right Thumb on the car contreras while getting out of her friend's car. No other acute med issues. BP 128/72 RR 15 Pulse ox 96% on RA Pulse 71 Temp 36.8 PE: Thin 33 y.o.w.f with right foot pain s/p surgery. TD: UTD (< 5 years) Impression: S/O ganglia removal right foot on 01/15/2019. Superficial LAC right Thumb Tx: Morphine 2mg, Neosporin ointment right thumb wound Reexam: Improved Plan: D/C with instructions Last Recorded V/S: Last Vital Signs Temp 36.7 C 01/16/19 16:14 Pulse 73 01/16/19 16:14 Resp 16 01/16/19 16:14 BP 114/73 01/16/19 16:14 Pulse Ox 96 01/16/19 16:14 - Orders/Labs/Meds Orders: Active Orders 24 hr Category Date Time Status Wound Care [RC] DAILY Care 01/16/19 15:48 Active Meds: Medications Discontinued Medications Generic Name Dose Route Start Last Admin Trade Name Maryann PRN Reason Stop Dose Admin Morphine Sulfate 2 mg 01/16/19 15:46 01/16/19 15:57 Morphine IM 01/16/19 15:47 2 mg ONETIME ONE Administration Departure - Departure Time of Disposition: 16:08 Disposition: Home, Self-Care 01 Condition: Good Clinical Impression: S/P foot surgery, right, Foot pain, right, Abrasion, finger w/o infection - Discharge Information Instructions: Incision Care, Adult, [id number] Referrals: Kelsie Aragon PA-C [Primary Care Provider] - Forms: ED Department Discharge Additional Instructions: Ice, Rest and elevation of right foot, please cont to take Tylenol/Mortin for pain, please f/u, come back if your symptoms get worse acutely - My Orders Last 24 Hours: My Active Orders 01/16/19 15:48 Wound Care [RC] DAILY - Assessment/Plan Last 24 Hours: My Active Orders 01/16/19 15:48 Wound Care [RC] DAILY
== END 2019-01-16 16:15 | disposition home or self-care (01) ==
LOC: FB.ED 15:27
DX: S61.011A Laceration without foreign body of right thumb without damage to nail, initial encounter (principal); M79.671 Pain in right foot; F17.210 Nicotine dependence, cigarettes, uncomplicated; F41.9 Anxiety disorder, unspecified; F31.9 Bipolar disorder, unspecified; Z79.899 Other long term (current) drug therapy; Z98.890 Other specified postprocedural states; Z79.82 Long term (current) use of aspirin; Z88.0 Allergy status to penicillin; Z88.1 Allergy status to other antibiotic agents; Z91.09 Other allergy status, other than to drugs and biological substances; W23.0XXA Caught, crushed, jammed, or pinched between moving objects, initial encounter
CPT/HCPCS: 96372; 99283; J2270

== ENCOUNTER 2019-02-22 20:12 | Emergency (ER) | payer MEDICAID ==
--- NOTE | 2019-02-22 20:44 | EDM.PDOC ---
ED HPI GENERAL MEDICAL PROBLEM - General Stated Complaint: WANTS TO GET WHITE BLOOD CELLS CHECKED Time Seen by Provider: 02/22/19 20:30 Source of Information: Reports: Patient - History of Present Illness INITIAL COMMENTS - FREE TEXT/NARRATIVE: pt comes in asking to have her CBC checked, states she has been noting 2 bruises at her legs over the past couble of days, does not recall injuries , denies any bleeding problems or any associated pain or any other sx or concerns , was told that she needs her platelet checked. pt denies taking any anticoagulants. was in the past on Coumadin and this was stopped this past january. - Related Data Allergies Allergy/AdvReac Type Severity Reaction Status Date / Time adhesive tape Allergy Other Verified 01/16/19 15:36 azithromycin Allergy Diarrhea Verified 01/16/19 15:36 [From Zithromax Z-Raza] cefazolin Allergy Other Verified 01/16/19 15:36 Penicillins Allergy Other Verified 01/16/19 15:36 Home Meds: Home Meds DULoxetine [Cymbalta] 60 mg PO DAILY 12/19/13 [History] Gabapentin [Neurontin] 300 mg PO DAILY 12/19/13 [History] Acetaminophen [Tylenol Extra Strength] 1,000 mg PO Q8HR PRN 11/09/18 [History] Methocarbamol 500 mg PO Q12HR PRN 11/09/18 [History] QUEtiapine Fumarate [Quetiapine Fumarate] 25 mg PO BID 11/09/18 [History] Aspirin 81 mg PO DAILY 01/14/19 [History] QUEtiapine Fumarate [Quetiapine Fumarate] 200 mg PO BEDTIME 01/14/19 [History] traMADol HCl [Tramadol HCl] 50 mg PO TID PRN 01/16/19 [History] Past Medical History HEENT History: Reports: Allergic Rhinitis Cardiovascular History: Reports: Bacterial Endocarditis, Blood Clots/VTE/DVT, Heart Valve Replacement, Other (See Below) Other Cardiovascular History: endocarditis 11/2016, open heart surgery 10/07/18, [employer] Respiratory History: Reports: PE Gastrointestinal History: Reports: GERD, Hepatitis, Other (See Below) Other Gastrointestinal History: Hepatitis C, ASCITES Genitourinary History: Reports: Acute Renal Failure, Dialysis, Renal Disease Other Genitourinary History: DIALYSIS, LEEP PROCEDURE 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/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 History: Reports: Other (See Below) 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 History: Musculoskeletal History: Reports: Arthritis, Fibromyalgia Neurological History: Reports: CVA, Migraines Other Neuro History: 4 mini strokes Psychiatric History: Reports: ADHD, Addiction, Anxiety, Bipolar, Depression, Psych Hospitalization(s), Suicide Attempt Endocrine/Metabolic History: Reports: Hypothyroidism Hematologic History: Reports: Anticoagulation Therapy, Blood Transfusion(s), Other (See Below) Other Hematologic History: VITAMIN E DEFICIENCY Immunologic History: Reports: Other (See Below) Other Immunologic History: HEPATITIS C Dermatologic History: Reports: Cellulitis - Infectious Disease History Infectious Disease History: Reports: Hepatitis C - Past Surgical History HEENT Surgical History: Reports: Oral Surgery Cardiovascular Surgical History: Reports: Vascular Surgery GI Surgical History: Reports: Colonoscopy, EGD, Other (See Below) Other GI Surgeries/Procedures: ascites Female Surgical History: Reports: Breast Biopsy, D&C, Tubal Ligation Musculoskeletal Surgical History: Reports: None, Other (See Below) Other Musculoskeletal Surgeries/Procedures:: Ganglion cyst removal of left foot Social & Family History - Family History Family Medical History: Noncontributory - Caffeine Use Caffeine Use: Reports: Soda ED ROS GENERAL - Review of Systems Review Of Systems: See Below Constitutional: Reports: No Symptoms HEENT: Reports: No Symptoms Respiratory: Reports: No Symptoms Cardiovascular: Reports: No Symptoms GI/Abdominal: Reports: No Symptoms : Reports: No Symptoms Musculoskeletal: Reports: No Symptoms Skin: Reports: Bruising. Denies: Pruritis, Rash Neurological: Reports: No Symptoms ED EXAM, GENERAL - Physical Exam Exam: See Below Exam Limited By: No Limitations General Appearance: Alert, No Apparent Distress Ears: Normal External Exam Nose: Normal Inspection Throat/Mouth: Normal Inspection Head: Atraumatic Neck: Normal Inspection, Supple Respiratory/Chest: No Respiratory Distress, Lungs Clear, Normal Breath Sounds Cardiovascular: Normal Peripheral Pulses, Regular Rate, Rhythm. No: No Edema, No JVD GI/Abdominal: Normal Bowel Sounds, Soft Neurological: Alert, Oriented, CN II-XII Intact Psychiatric: Normal Affect Skin Exam: Warm, Dry Lymphatic: Other (2 small light bruises at her left thigh and right knee , nontender, has light yellow discoloration.) Course - Vital Signs Text/Narrative:: pt has very mile localized bruising, likely secondary to minor injury that she is not aware off, advised pt that she is medically stable to follow on this issue with her PCP if continue to be a recurrent problem , explained there are no emergency need for farther testing today. Departure - Departure Time of Disposition: 21:50 Disposition: Home, Self-Care 01 Clinical Impression: Bruising - Discharge Information Referrals: Kelsie Aragon PA-C [Primary Care Provider] - - Problem List & Annotations (1) Bruising SNOMED Code(s): 646448188 Code(s): T14.8XXA - OTHER INJURY OF UNSPECIFIED BODY REGION, INITIAL ENCOUNTER Status: Acute Current Visit: Yes
== END 2019-02-22 21:42 | disposition home or self-care (01) ==
LOC: FB.ED 20:12
DX: T14.8XXA Other injury of unspecified body region, initial encounter (principal); F41.9 Anxiety disorder, unspecified; F31.9 Bipolar disorder, unspecified; Z79.899 Other long term (current) drug therapy; Z79.82 Long term (current) use of aspirin; Z88.1 Allergy status to other antibiotic agents; Z88.0 Allergy status to penicillin; X58.XXXA Exposure to other specified factors, initial encounter
CPT/HCPCS: 99283

== ENCOUNTER 2019-04-21 15:48 | Emergency (ER) | payer MEDICAID ==
--- NOTE | 2019-04-21 16:24 | EDM.PDOC ---
ED HPI GENERAL MEDICAL PROBLEM - General Chief Complaint: Laceration Stated Complaint: LACERATION TO FINGER Time Seen by Provider: 04/21/19 16:00 Source of Information: Reports: Patient History Limitations: Reports: No Limitations - History of Present Illness INITIAL COMMENTS - FREE TEXT/NARRATIVE: 33-year-old female who was washing dishes at approximately 3 PM today and she cut her left index fingertip on a knife. There was some bleeding but it has been controlled with direct pressure. He reports there is a stinging pain that she rates as a 5/10. She does have range of motion in her finger and she is sensation in the tip of finger. She had no other injuries. There are no other associated signs or symptoms. There are no other modifying factors. 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 (see below) (Nothing) LEFT INDEX FINGER Pain Score (Numeric/FACES): 5 - Related Data Allergies Allergy/AdvReac Type Severity Reaction Status Date / Time adhesive tape Allergy Rash Verified 04/21/19 15:58 azithromycin Allergy Diarrhea Verified 02/22/19 20:49 [From Zithromax Z-Raza] cefazolin Allergy Diarrhea Verified 04/21/19 15:58 Penicillins Allergy Diarrhea Verified 04/21/19 15:58 Home Meds: Home Meds DULoxetine [Cymbalta] 90 mg PO DAILY 12/19/13 [History] Gabapentin [Neurontin] 300 mg PO DAILY 12/19/13 [History] Acetaminophen [Tylenol Extra Strength] 1,000 mg PO Q8HR PRN 11/09/18 [History] Methocarbamol 500 mg PO Q12HR PRN 11/09/18 [History] QUEtiapine Fumarate [Quetiapine Fumarate] 25 mg PO BID 11/09/18 [History] Aspirin 81 mg PO DAILY 01/14/19 [History] QUEtiapine Fumarate [Quetiapine Fumarate] 250 mg PO BEDTIME 01/14/19 [History] Past Medical History HEENT History: Reports: Allergic Rhinitis Cardiovascular History: Reports: Bacterial Endocarditis, Blood Clots/VTE/DVT, Heart Valve Replacement, Other (See Below) Other Cardiovascular History: endocarditis 11/2016, open heart surgery 10/07/18, [employer] Respiratory History: Reports: PE Gastrointestinal History: Reports: GERD, Hepatitis, Other (See Below) Other Gastrointestinal History: Hepatitis C, ASCITES Genitourinary History: Reports: Acute Renal Failure, Dialysis, Renal Disease Other Genitourinary History: DIALYSIS, LEEP PROCEDURE 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 (See Below) 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: Musculoskeletal History: Reports: Arthritis, Fibromyalgia Neurological History: Reports: CVA, Migraines Other Neuro History: 4 mini strokes Psychiatric History: Reports: ADHD, Addiction, Anxiety, Bipolar, Depression, Psych Hospitalization(s), Suicide Attempt Endocrine/Metabolic History: Reports: Hypothyroidism Hematologic History: Reports: Blood Transfusion(s), Other (See Below) Other Hematologic History: VITAMIN E DEFICIENCY Immunologic History: Reports: Other (See Below) Other Immunologic History: HEPATITIS C Dermatologic History: Reports: Cellulitis - Infectious Disease History Infectious Disease History: Reports: Hepatitis C - Past Surgical History HEENT Surgical History: Reports: Oral Surgery Cardiovascular Surgical History: Reports: Valve Replacement (2) GI Surgical History: Reports: Colonoscopy, EGD Female Surgical History: Reports: Breast Biopsy, D&C, Tubal Ligation Musculoskeletal Surgical History: Reports: Other (See Below) Other Musculoskeletal Surgeries/Procedures:: Ganglion cyst removal of left foot Social & Family History - Tobacco Use Smoking Status *Q: Current Every Day Smoker - Caffeine Use Caffeine Use: Reports: Soda - Alcohol Use Alcohol Use History: No - Recreational Drug Use Recreational Drug Use: Yes Drug Use in Last 12 Months: No Recreational Drug Use Comment: Sober from IV drug use 1 year - Living Situation & Occupation Social History Comment: She is here with her friend. ED ROS GENERAL - Review of Systems Review Of Systems: See Below Constitutional: Reports: No Symptoms HEENT: Reports: No Symptoms Respiratory: Reports: No Symptoms Cardiovascular: Reports: No Symptoms GI/Abdominal: Reports: No Symptoms : Reports: No Symptoms Musculoskeletal: Reports: Other ([id number]) Skin: Reports: Other (Superficial laceration to left index finger) Neurological: Reports: No Symptoms Hematologic/Lymphatic: Reports: No Symptoms (She is on no chronic anticoagulation.) Immunologic: Reports: Other (Her last tetanus immunization was less than 5 years ago.) ED EXAM, SKIN/RASH Exam: See Below Exam Limited By: No Limitations General Appearance: Alert, WD/WN, No Apparent Distress Eye Exam: Bilateral Eye: EOMI, Normal Inspection Ears: Normal External Exam Nose: Normal Inspection, Normal Mucosa, No Blood Throat/Mouth: Normal Voice, No Airway Compromise, Other (Edentulous) Head: Atraumatic, Normocephalic Neck: Normal Inspection, Supple, Non-Tender, Full Range of Motion Respiratory/Chest: No Respiratory Distress, Lungs Clear, Normal Breath Sounds, No Accessory Muscle Use, Chest Non-Tender Cardiovascular: Normal Peripheral Pulses, Regular Rate, Rhythm, No JVD Peripheral Pulses: 2+: Radial (L), Radial (R) GI/Abdominal: Normal Bowel Sounds, Soft, Non-Tender, No Mass Back Exam: Normal Inspection Extremities: Normal Range of Motion, Normal Capillary Refill Neurological: Alert, Oriented, CN II-XII Intact, Normal Cognition, No Motor/ Sensory Deficits Skin: Warm, Dry, Normal Color, No Rash, Wound/Incision (Small superficial wound on finger pad of left index finger.) Location, Skin: Upper Extremity, Left (Left index finger) Characteristics: Linear ED SKIN PROCEDURES - Laceration/Wound Repair Left Digit - 2nd (Index) Lac/Wound length In cm: 1.5 Appearance: Superficial, Clean Distal NVT: Neuro & Vascular Intact Local Anesthesia - Lidocaine (Xylocaine): Other (None) Skin Prep: Other (Wound was cleaned by nursing staff.) Closed with: Dermabond Tetanus Status Addressed: Other (Patient was up-to-date) Complications: No Progress/Comments: Patient tolerated this procedure well without any apparent complications. Course - Vital Signs Last Recorded V/S: Last Vital Signs Temp 36.7 C 04/21/19 15:50 Pulse 89 04/21/19 15:50 Resp 15 04/21/19 15:50 BP 125/81 04/21/19 15:50 Pulse Ox 99 04/21/19 15:50 - Re-Assessments/Exams Free Text/Narrative Re-Assessment/Exam: 04/21/19 16:31: Patient with superficial laceration to left index fingertip that was cleaned by the nursing staff and had Dermabond applied in 2 layers. Departure - Departure Time of Disposition: 16:32 Disposition: Home, Self-Care 01 Condition: Good (Improved) Clinical Impression: Laceration of left index finger Qualifiers: Encounter type: initial encounter Damage to nail status: without damage Foreign body presence: without foreign body Qualified Code(s): S61.211A - Laceration without foreign body of left index finger without damage to nail, initial encounter - Discharge Information Instructions: Stitches, [place], or Adhesive Wound Closure, [id number] Referrals: PCP,Not In Area [Primary Care Provider] - Additional Instructions: Avoid strenuous use with the left hand for the next 5 days. Back to the emergency department for marked increase in pain, signs of infection or any other concerning sign or symptom.
== END 2019-04-21 16:30 | disposition home or self-care (01) ==
LOC: FB.ED 15:48
DX: S61.211A Laceration without foreign body of left index finger without damage to nail, initial encounter (principal); F41.9 Anxiety disorder, unspecified; F32.9 Major depressive disorder, single episode, unspecified; Z86.718 Personal history of other venous thrombosis and embolism; Z86.711 Personal history of pulmonary embolism; Z88.0 Allergy status to penicillin; Z91.048 Other nonmedicinal substance allergy status; Z88.1 Allergy status to other antibiotic agents; Z79.82 Long term (current) use of aspirin; Z79.899 Other long term (current) drug therapy; W26.0XXA Contact with knife, initial encounter
CPT/HCPCS: 99282

== ENCOUNTER 2019-04-24 21:40 | Emergency (ER) | payer MEDICAID ==
[2019-04-24] MEDS ORDERED: Sulfamethoxazole/Trimethoprim 800-160 MG Tab PO ONE (21:41)
--- NOTE | 2019-04-24 23:22 | EDM.PDOC ---
ED HPI GENERAL MEDICAL PROBLEM - General Chief Complaint: Abdominal Pain Stated Complaint: INFECTION Time Seen by Provider: 04/24/19 23:00 Source of Information: Reports: Patient History Limitations: Reports: No Limitations - History of Present Illness INITIAL COMMENTS - FREE TEXT/NARRATIVE: the patient presents with concern for wound infection around the site of her hysterectomy incisions. She had a hysterectomy done yesterday and Michael falls and was discharged this morning to home. She states that throughout the evening she has had increasing pain in her abdomen and kind of a funny feeling in her side, but these seem to coincide with the wearing off of the epidural she was given. Over the course of the afternoon and evening she noticed some redness around the site of her umbilical and left sided incisions. She has a history of MRSA and strep infections around the sites of previous surgical incisions and is quite concerned that this is happening again. The area is painful, she has not had any discharge. The surgical Dermabond is still in place. Patient reports a decreased appetite today, but did get up and walk around, is urinating okay and passing gas. She has a lot of generalized discomfort in her abdomen. lower abd NAVYA Pain Score (Numeric/FACES): 8 - Related Data Allergies Allergy/AdvReac Type Severity Reaction Status Date / Time adhesive tape Allergy Rash Verified 04/21/19 15:58 azithromycin Allergy Diarrhea Verified 02/22/19 20:49 [From Zithromax Z-Raza] cefazolin Allergy Diarrhea Verified 04/21/19 15:58 Penicillins Allergy Diarrhea Verified 04/21/19 15:58 Home Meds: Home Meds DULoxetine [Cymbalta] 90 mg PO DAILY 12/19/13 [History] RX: Gabapentin [Neurontin] 300 mg PO DAILY 12/19/13 [History] Acetaminophen [Tylenol Extra Strength] 1,000 mg PO Q8HR PRN 11/09/18 [History] Methocarbamol 500 mg PO Q12HR PRN 11/09/18 [History] QUEtiapine Fumarate [Quetiapine Fumarate] 25 mg PO BID 11/09/18 [History] QUEtiapine Fumarate [Quetiapine Fumarate] 250 mg PO BEDTIME 01/14/19 [History] RX: Aspirin 81 mg PO DAILY 01/14/19 [History] Past Medical History HEENT History: Reports: Allergic Rhinitis Cardiovascular History: Reports: Bacterial Endocarditis, Blood Clots/VTE/DVT, Heart Valve Replacement, Other (See Below) Other Cardiovascular History: endocarditis 11/2016, open heart surgery 10/07/18, [employer] Respiratory History: Reports: PE Gastrointestinal History: Reports: GERD, Hepatitis, Other (See Below) Other Gastrointestinal History: Hepatitis C, ASCITES Genitourinary History: Reports: Acute Renal Failure, Dialysis, Renal Disease Other Genitourinary History: DIALYSIS, LEEP PROCEDURE 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: Musculoskeletal History: Reports: Arthritis, Fibromyalgia Neurological History: Reports: CVA, Migraines Other Neuro History: 4 mini strokes Psychiatric History: Reports: ADHD, Addiction, Anxiety, Bipolar, Depression, Psych Hospitalization(s), Suicide Attempt Endocrine/Metabolic History: Reports: Hypothyroidism Hematologic History: Reports: Blood Transfusion(s), Other (See Below) Other Hematologic History: VITAMIN E DEFICIENCY Immunologic History: Reports: Other (See Below) Other Immunologic History: HEPATITIS C Dermatologic History: Reports: Cellulitis - Infectious Disease History Infectious Disease History: Reports: Hepatitis C - Past Surgical History HEENT Surgical History: Reports: Oral Surgery Cardiovascular Surgical History: Reports: Valve Replacement GI Surgical History: Reports: Colonoscopy, EGD Female Surgical History: Reports: Breast Biopsy, D&C, Tubal Ligation Musculoskeletal Surgical History: Reports: Other (See Below) Other Musculoskeletal Surgeries/Procedures:: Ganglion cyst removal of left foot Social & Family History - Family History Family Medical History: Noncontributory - Tobacco Use Smoking Status *Q: Current Every Day Smoker Years of Tobacco use: 20 Packs/Tins Daily: 0.5 - Caffeine Use Caffeine Use: Reports: Soda - Living Situation & Occupation Living situation: Reports: with Significant Other ED ROS GENERAL - Review of Systems Review Of Systems: ROS reveals no pertinent complaints other than HPI. ED EXAM, GENERAL - Physical Exam Exam: See Below Free Text/Narrative:: general: Alert, pleasant no acute distress. Heart is regular, lungs are clear throughout with no wheezing or crackles, and she is breathing easily speaking in full sentences. She has good peripheral pulses and no lower extremity edema or calf swelling. Abdomen has positive bowel sounds, is soft and slightly distended but not more than I would expect for a postoperative laparoscopic procedure. She is diffusely tender but not acutely with no rebound or guarding.there are 3 surgical incisions visible on her abdomen, one umbilical and then one lower down each on the right than the left. The right sided lower one appears normal. The umbilical and left-sided incision both have an area of surrounding erythema that would be concerning for cellulitis. It is tender to the touch, even to light touch much more so than the surrounding tissue. There is no discharge from the incisions and the Dermabond is in place. Course - Vital Signs Text/Narrative:: patient presents with concern for superficial postoperative wound infection. It is somewhat soon after surgery for her to develop infection, but she does have history of having, with this when she had chest tubes previously placed. Discussed with the patient starting her on an oral antibiotic to cover for MRSA and strep infections, and then we made an outline around the red gillian with the date and pictures were taken on patient's phone. Recommended she call her surgeon in the morning to discuss further options. The rest of her abdominal discomfort I think is consistent with routine postoperative healing for a laparoscopic procedure. She was not acutely ill, has not had any fevers, was breathing normally and had normal vitals. Last Recorded V/S: Last Vital Signs Temp 36.4 C 04/24/19 23:20 Pulse 79 04/24/19 23:20 Resp 18 04/24/19 23:20 BP 131/87 04/24/19 23:20 Pulse Ox 96 04/24/19 23:20 Departure - Departure Time of Disposition: 23:12 Disposition: Home, Self-Care 01 Condition: Fair Clinical Impression: Cellulitis - Discharge Information Instructions: Cellulitis, Adult, [id number] Referrals: Kelsie Aragon PA-C [Primary Care Provider] - Forms: ED Department Discharge Additional Instructions: started on Bactrim DS twice a day for possible skin/superficial wound infection , five-day supply given. Outlined with time placed and picture taken on patient's phone. call surgeon's office in the morning regarding follow-up and let them know you were seen here for a possible skin infection.
== END 2019-04-24 23:34 | disposition home or self-care (01) ==
LOC: FB.ED 21:40
DX: T81.49XA Infection following a procedure, other surgical site, initial encounter (principal); L03.311 Cellulitis of abdominal wall; F41.9 Anxiety disorder, unspecified; F32.9 Major depressive disorder, single episode, unspecified; F90.9 Attention-deficit hyperactivity disorder, unspecified type; F17.210 Nicotine dependence, cigarettes, uncomplicated; Z90.710 Acquired absence of both cervix and uterus; Z86.718 Personal history of other venous thrombosis and embolism; Z86.711 Personal history of pulmonary embolism; Z86.73 Personal history of transient ischemic attack (TIA), and cerebral infarction without residual deficits; Z88.0 Allergy status to penicillin; Z88.1 Allergy status to other antibiotic agents; Z91.048 Other nonmedicinal substance allergy status; Z79.82 Long term (current) use of aspirin; Z79.899 Other long term (current) drug therapy
CPT/HCPCS: 99283; A9270

== ENCOUNTER 2019-04-25 18:54 | Emergency (ER) | payer MEDICAID ==
--- NOTE | 2019-04-25 19:57 | EDM.PDOC ---
ED HPI GENERAL MEDICAL PROBLEM - General Chief Complaint: Skin Complaint Stated Complaint: OPEN WOUND Time Seen by Provider: 04/25/19 19:00 Source of Information: Reports: Patient, Old Records History Limitations: Reports: No Limitations - History of Present Illness INITIAL COMMENTS - FREE TEXT/NARRATIVE: Gaby returns to [facility] ED with another concern regarding abdominal wounds post op hysterectomy on April 23 in [place]. The Dermabond adhesive has from the RLQ wound today, exposing SC tissue. There is no active bleeding. Remaining wounds look fine. She is requesting guidance. - Related Data Allergies Allergy/AdvReac Type Severity Reaction Status Date / Time adhesive tape Allergy Rash Verified 04/21/19 15:58 azithromycin Allergy Diarrhea Verified 02/22/19 20:49 [From Zithromax Z-Raza] cefazolin Allergy Diarrhea Verified 04/21/19 15:58 Penicillins Allergy Diarrhea Verified 04/21/19 15:58 Home Meds: Home Meds DULoxetine [Cymbalta] 90 mg PO DAILY 12/19/13 [History] Gabapentin [Neurontin] 300 mg PO DAILY 12/19/13 [History] Acetaminophen [Tylenol Extra Strength] 1,000 mg PO Q8HR PRN 11/09/18 [History] Methocarbamol 500 mg PO Q12HR PRN 11/09/18 [History] QUEtiapine Fumarate [Quetiapine Fumarate] 25 mg PO BID 11/09/18 [History] Aspirin 81 mg PO DAILY 01/14/19 [History] QUEtiapine Fumarate [Quetiapine Fumarate] 250 mg PO BEDTIME 01/14/19 [History] Past Medical History HEENT History: Reports: Allergic Rhinitis Cardiovascular History: Reports: Bacterial Endocarditis, Blood Clots/VTE/DVT, Heart Valve Replacement, Other (See Below) Other Cardiovascular History: endocarditis 11/2016, open heart surgery 10/07/18, [employer] Respiratory History: Reports: PE Gastrointestinal History: Reports: GERD, Hepatitis, Other (See Below) Other Gastrointestinal History: Hepatitis C, ASCITES Genitourinary History: Reports: Acute Renal Failure, Dialysis, Renal Disease Other Genitourinary History: DIALYSIS, LEEP PROCEDURE FAMILY MANAGER 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: Reports: Other (See Below) Other FAMILY MANAGER History: Musculoskeletal History: Reports: Arthritis, Fibromyalgia Neurological History: Reports: CVA, Migraines Other Neuro History: 4 mini strokes Psychiatric History: Reports: ADHD, Addiction, Anxiety, Bipolar, Depression, Psych Hospitalization(s), Suicide Attempt Endocrine/Metabolic History: Reports: Hypothyroidism Hematologic History: Reports: Blood Transfusion(s), Other (See Below) Other Hematologic History: VITAMIN E DEFICIENCY Immunologic History: Reports: Other (See Below) Other Immunologic History: HEPATITIS C Dermatologic History: Reports: Cellulitis - Infectious Disease History Infectious Disease History: Reports: Hepatitis C - Past Surgical History HEENT Surgical History: Reports: Oral Surgery Cardiovascular Surgical History: Reports: Valve Replacement GI Surgical History: Reports: Colonoscopy, EGD Female Surgical History: Reports: Breast Biopsy, D&C, Tubal Ligation Musculoskeletal Surgical History: Reports: Other (See Below) Other Musculoskeletal Surgeries/Procedures:: Ganglion cyst removal of left foot Social & Family History - Family History Family Medical History: Noncontributory - Tobacco Use Smoking Status *Q: Current Every Day Smoker Years of Tobacco use: 20 Packs/Tins Daily: 0.5 - Caffeine Use Caffeine Use: Reports: Soda - Living Situation & Occupation Living situation: Reports: with Significant Other ED ROS GENERAL - Review of Systems Review Of Systems: ROS reveals no pertinent complaints other than HPI. ED EXAM, SKIN/RASH Exam: See Below Exam Limited By: No Limitations General Appearance: Alert, WD/WN, No Apparent Distress, Anxious Head: Normocephalic Neck: Normal Inspection, Supple, Non-Tender Respiratory/Chest: Lungs Clear Cardiovascular: Regular Rate, Rhythm, No Murmur GI/Abdominal: Normal Bowel Sounds, Soft, Non-Tender, No Organomegaly, No Distention, No Mass, Other (1.5 cm linear wound dehisence RLQ, margins clean, no discharge, no erythema) (Female) Exam: Deferred Rectal (Female) Exam: Deferred Back Exam: Normal Inspection Extremities: Normal Inspection Neurological: Alert, Oriented, CN II-XII Intact, Normal Cognition, No Motor/ Sensory Deficits Psychiatric: Normal Affect, Anxious Skin: Warm, Dry, Normal Color, No Rash, Other (1.5 cm wound dehisence RLQ) Course - Vital Signs Text/Narrative:: Following inspection of wound, I SteriStripped the wound with good apposition. Patient tolerated well. Last Recorded V/S: Last Vital Signs Temp 36.9 C 04/25/19 18:54 Pulse 91 04/25/19 18:54 Resp 17 04/25/19 18:54 BP 128/73 04/25/19 18:54 Pulse Ox 98 04/25/19 18:54 Departure - Departure Time of Disposition: 19:30 Disposition: Home, Self-Care 01 Condition: Good Clinical Impression: Wound dehiscence, surgical Qualifiers: Encounter type: initial encounter Qualified Code(s): T81.31XA - Disruption of external operation (surgical) wound, not elsewhere classified, initial encounter - Discharge Information *PRESCRIPTION DRUG MONITORING PROGRAM REVIEWED*: Not Applicable *COPY OF PRESCRIPTION DRUG MONITORING REPORT IN PATIENT JOLLY: Not Applicable Instructions: Incision Care, Adult, [id number] Referrals: Kelsie Aragon PA-C [Primary Care Provider] - Forms: ED Department Discharge Additional Instructions: follow up with your surgeon as scheduled on follow up with your primary care as needed. - Problem List & Annotations (1) Wound dehiscence, surgical SNOMED Code(s): 907087880 Code(s): T81.31XA - DISRUPTION OF EXTERNAL OPERATION (SURGICAL) WOUND, NEC, INIT Status: Acute Annotation/Comment:: Continue post op cares. Qualifiers: Encounter type: initial encounter Qualified Code(s): T81.31XA - Disruption of external operation (surgical) wound, not elsewhere classified, initial encounter - Problem List Review Problem List Initiated/Reviewed/Updated: Yes - Assessment/Plan Plan: Follow up with surgeon on May 06.
== END 2019-04-25 19:33 | disposition home or self-care (01) ==
LOC: FB.ED 18:54
DX: T81.31XA Disruption of external operation (surgical) wound, not elsewhere classified, initial encounter (principal); K21.9 Gastro-esophageal reflux disease without esophagitis; F90.9 Attention-deficit hyperactivity disorder, unspecified type; F41.9 Anxiety disorder, unspecified; E03.9 Hypothyroidism, unspecified; F17.210 Nicotine dependence, cigarettes, uncomplicated; Z91.048 Other nonmedicinal substance allergy status; Z88.1 Allergy status to other antibiotic agents; Z88.0 Allergy status to penicillin; Z79.899 Other long term (current) drug therapy; Z79.82 Long term (current) use of aspirin; Z86.718 Personal history of other venous thrombosis and embolism; Z99.2 Dependence on renal dialysis
CPT/HCPCS: 99282

== ENCOUNTER 2019-05-09 10:01 | Emergency (ER) | payer MEDICAID ==
--- NOTE | 2019-05-09 11:05 | EDM.PDOC ---
ED HPI GENERAL MEDICAL PROBLEM - General Chief Complaint: General Stated Complaint: POSSIBLE INFECTION POST SURGERY Time Seen by Provider: 05/09/19 10:35 - History of Present Illness INITIAL COMMENTS - FREE TEXT/NARRATIVE: Patient is a 33 YO WF who had a hysterectomy 2 weeks ago and was seen by his APPLICATION COUNSELOR yesterday for follow up and she mentioned a pinkish discharge which is fowl smelling and Dr Gordon thought that it's a normal discharge but patient insist that she has an infection. She told me and [facility] nurse that Dr Gordon gave her a prescription for her vaginal discharge but per Dr Gordon there is no prescription given to her. There is no associated fever or chills or abdominal pain. - Related Data Allergies Allergy/AdvReac Type Severity Reaction Status Date / Time adhesive tape Allergy Rash Verified 05/09/19 10:18 azithromycin Allergy Diarrhea Verified 05/09/19 10:18 [From Zithromax Z-Raza] cefazolin Allergy Diarrhea Verified 05/09/19 10:18 Penicillins Allergy Diarrhea Verified 05/09/19 10:18 Home Meds: Home Meds DULoxetine [Cymbalta] 90 mg PO DAILY 12/19/13 [History] Gabapentin [Neurontin] 300 mg PO DAILY 12/19/13 [History] Acetaminophen [Tylenol Extra Strength] 1,000 mg PO Q8HR PRN 11/09/18 [History] Methocarbamol 500 mg PO Q12HR PRN 11/09/18 [History] QUEtiapine Fumarate [Quetiapine Fumarate] 25 mg PO BID 11/09/18 [History] Aspirin 81 mg PO DAILY 01/14/19 [History] QUEtiapine Fumarate [Quetiapine Fumarate] 250 mg PO BEDTIME 01/14/19 [History] Past Medical History HEENT History: Reports: Allergic Rhinitis Cardiovascular History: Reports: Bacterial Endocarditis, Blood Clots/VTE/DVT, Heart Valve Replacement, Other (See Below) Other Cardiovascular History: endocarditis 11/2016, open heart surgery 10/07/18, [employer] Respiratory History: Reports: PE Gastrointestinal History: Reports: GERD, Hepatitis, Other (See Below) Other Gastrointestinal History: Hepatitis C, ASCITES Genitourinary History: Reports: Acute Renal Failure, Dialysis, Renal Disease Other Genitourinary History: DIALYSIS, LEEP PROCEDURE 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: Other (See Below) 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: Musculoskeletal History: Reports: Arthritis, Fibromyalgia Neurological History: Reports: CVA, Migraines Other Neuro History: 4 mini strokes Psychiatric History: Reports: ADHD, Addiction, Anxiety, Bipolar, Depression, Psych Hospitalization(s), Suicide Attempt Endocrine/Metabolic History: Reports: Hypothyroidism Hematologic History: Reports: Blood Transfusion(s), Other (See Below) Other Hematologic History: VITAMIN E DEFICIENCY Immunologic History: Reports: Other (See Below) Other Immunologic History: HEPATITIS C Dermatologic History: Reports: Cellulitis - Infectious Disease History Infectious Disease History: Reports: Hepatitis C - Past Surgical History HEENT Surgical History: Reports: Oral Surgery Cardiovascular Surgical History: Reports: Valve Replacement GI Surgical History: Reports: Colonoscopy, EGD Female Surgical History: Reports: Breast Biopsy, D&C, Hysterectomy, Tubal Ligation Musculoskeletal Surgical History: Reports: Other (See Below) Other Musculoskeletal Surgeries/Procedures:: Ganglion cyst removal of left foot Social & Family History - Family History Family Medical History: Noncontributory - Tobacco Use Smoking Status *Q: Current Every Day Smoker Years of Tobacco use: 21 Packs/Tins Daily: 1 - Caffeine Use Caffeine Use: Reports: Energy Drinks, Soda - Recreational Drug Use Recreational Drug Use: No - Living Situation & Occupation Living situation: Reports: with Significant Other ED ROS GENERAL - Review of Systems Review Of Systems: See Below Constitutional: Reports: No Symptoms HEENT: Reports: No Symptoms Respiratory: Reports: No Symptoms Cardiovascular: Reports: No Symptoms Endocrine: Reports: No Symptoms GI/Abdominal: Reports: No Symptoms : Reports: Discharge Musculoskeletal: Reports: No Symptoms Skin: Reports: No Symptoms ED EXAM, GENERAL - Physical Exam Exam: See Below Exam Limited By: No Limitations General Appearance: Alert, No Apparent Distress Eye Exam: Bilateral Eye: PERRL Ears: Normal External Exam Nose: Normal Inspection, Normal Mucosa, No Blood Throat/Mouth: Normal Inspection Head: Atraumatic, Normocephalic Neck: Normal Inspection, Supple, Non-Tender, Full Range of Motion Respiratory/Chest: No Respiratory Distress, Lungs Clear, Normal Breath Sounds, No Accessory Muscle Use Cardiovascular: Normal Peripheral Pulses, Regular Rate, Rhythm, No Edema, No JVD , No Murmur, No Rub GI/Abdominal: Normal Bowel Sounds, Soft, Non-Tender, No Organomegaly, Other (no fluid wave) (Female) Exam: Vaginal Discharge (pinkish,not fowl smelling. No adnexal tenderness) Back Exam: Normal Inspection, Full Range of Motion Extremities: Normal Inspection, Normal Range of Motion, Non-Tender, No Pedal Edema Course - Vital Signs Text/Narrative:: labs reviewed and discussed with patient wet prep-see result Last Recorded V/S: Last Vital Signs Temp 36.7 C 05/09/19 10:05 Pulse 88 05/09/19 10:05 Resp 16 05/09/19 10:05 BP 108/91 H 05/09/19 10:05 Pulse Ox 95 05/09/19 10:05 Departure - Departure Time of Disposition: 11:15 Disposition: Home, Self-Care 01 Condition: Good Clinical Impression: Bacterial vaginosis, Yeast vaginitis - Discharge Information Referrals: Kelsie Aragon PA-C [Primary Care Provider] - Forms: ED Department Discharge
== END 2019-05-09 11:33 | disposition home or self-care (01) ==
LOC: FB.ED 10:01
DX: N76.0 Acute vaginitis (principal); B37.3 Candidiasis of vulva and vagina; F17.210 Nicotine dependence, cigarettes, uncomplicated; F32.9 Major depressive disorder, single episode, unspecified; F41.9 Anxiety disorder, unspecified; F90.9 Attention-deficit hyperactivity disorder, unspecified type; Z90.710 Acquired absence of both cervix and uterus; Z88.0 Allergy status to penicillin; Z88.8 Allergy status to other drugs, medicaments and biological substances; Z88.1 Allergy status to other antibiotic agents; Z91.048 Other nonmedicinal substance allergy status; Z79.899 Other long term (current) drug therapy
CPT/HCPCS: 87210; 99283

== ENCOUNTER 2019-06-07 19:02 | Emergency (ER) | payer MEDICAID ==
[2019-06-07] MEDS ORDERED: Albuterol 8 GM Inhaler INH ONE (19:03)
[2019-06-07] MEDS ORDERED: Albuterol/Ipratropium 3.0-0.5 MG/3 ML Neb Soln NEB ONE (19:26)
[2019-06-07] MEDS ORDERED: Morphine 2 MG/ML Syringe ONE (19:39)
[2019-06-07] MEDS ORDERED: Sulfamethoxazole/Trimethoprim 800-160 MG Tab PO STA (20:19)
--- NOTE | 2019-06-07 20:25 | EDM.PDOC ---
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 No SOB or chest pain or any other acute med issues. BP 114/70 RR 15 Pulse ox 95% on RA temp 36.8 Pulse 85 Onset Date: 06/07/19 Onset Time: 08:00 Duration: Hour(s):, Intermittent Location: Reports: Chest (cough) Quality: Reports: Dull Severity: Mild Improves with: Reports: None Worsens with: Reports: Other Context: Reports: Other (smokes) Associated Symptoms: Reports: Other (left shoulder pain, not new) - Related Data Allergies Allergy/AdvReac Type Severity Reaction Status Date / Time adhesive tape Allergy Rash Verified 06/07/19 20:01 azithromycin Allergy Diarrhea Verified 06/07/19 20:01 [From Zithromax Z-Raza] cefazolin Allergy Diarrhea Verified 06/07/19 20:01 Penicillins Allergy Diarrhea Verified 06/07/19 20:01 Home Meds: Home Meds DULoxetine [Cymbalta] 90 mg PO DAILY 12/19/13 [History] Acetaminophen [Tylenol Extra Strength] 1,000 mg PO Q8HR PRN 11/09/18 [History] Methocarbamol 500 mg PO Q12HR PRN 11/09/18 [History] QUEtiapine Fumarate [Quetiapine Fumarate] 50 mg PO 08,14 11/09/18 [History] Aspirin 81 mg PO DAILY 01/14/19 [History] QUEtiapine Fumarate [Quetiapine Fumarate] 250 mg PO BEDTIME 01/14/19 [History] Gabapentin [Neurontin] 300 mg PO DAILY 06/07/19 [History] Ibuprofen 800 mg PO BID PRN 06/07/19 [History] Prazosin HCl [Prazosin] 2 mg PO BEDTIME 06/07/19 [History] Sulfamethoxazole/Trimethoprim [Bactrim Ds Tablet] 1 each PO BID #20 tablet 06/07 [Rx] Past Medical History HEENT History: Reports: Allergic Rhinitis Cardiovascular History: Reports: Bacterial Endocarditis, Blood Clots/VTE/DVT, Heart Valve Replacement, Other (See Below) Other Cardiovascular History: endocarditis 11/2016, open heart surgery 10/07/18, [employer] Respiratory History: Reports: PE Gastrointestinal History: Reports: GERD, Hepatitis, Other (See Below) Other Gastrointestinal History: Hepatitis C, ASCITES Genitourinary History: Reports: Acute Renal Failure, Dialysis, Renal Disease Other Genitourinary History: DIALYSIS, LEEP PROCEDURE 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 (See Below) 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: Musculoskeletal History: Reports: Arthritis, Fibromyalgia Neurological History: Reports: CVA, Migraines Other Neuro History: 4 mini strokes Psychiatric History: Reports: ADHD, Addiction, Anxiety, Bipolar, Depression, Psych Hospitalization(s), Suicide Attempt Endocrine/Metabolic History: Reports: Hypothyroidism Hematologic History: Reports: Blood Transfusion(s), Other (See Below) Other Hematologic History: VITAMIN E DEFICIENCY Immunologic History: Reports: Other (See Below) Other Immunologic History: HEPATITIS C Dermatologic History: Reports: Cellulitis - Infectious Disease History Infectious Disease History: Reports: Hepatitis C - Past Surgical History HEENT Surgical History: Reports: Oral Surgery Cardiovascular Surgical History: Reports: Valve Replacement GI Surgical History: Reports: Colonoscopy, EGD Female Surgical History: Reports: Breast Biopsy, D&C, Hysterectomy, Tubal Ligation Musculoskeletal Surgical History: Reports: Other (See Below) Other Musculoskeletal Surgeries/Procedures:: Ganglion cyst removal of left foot Social & Family History - Family History Family Medical History: Noncontributory - Caffeine Use Caffeine Use: Reports: Energy Drinks, Soda - Living Situation & Occupation Living situation: Reports: with Significant Other ED ROS GENERAL - Review of Systems Review Of Systems: See Below Constitutional: Reports: No Symptoms HEENT: Reports: No Symptoms Respiratory: Reports: Cough, Sputum Cardiovascular: Reports: No Symptoms Endocrine: Reports: No Symptoms GI/Abdominal: Reports: Abdominal Pain (RUQ of abdomen) : Reports: No Symptoms Musculoskeletal: Reports: Shoulder Pain (left, chronic intermittant) Skin: Reports: No Symptoms Neurological: Reports: No Symptoms Psychiatric: Reports: No Symptoms Hematologic/Lymphatic: Reports: No Symptoms Immunologic: Reports: No Symptoms ED EXAM, GENERAL - Physical Exam Exam: See Below Exam Limited By: No Limitations General Appearance: Alert, WD/WN, Mild Distress Eye Exam: Bilateral Eye: Normal Inspection Ears: Normal External Exam Ear Exam: Bilateral Ear: Auricle Normal Nose: Nasal Drainage Throat/Mouth: Normal Lips, Normal Voice, No Airway Compromise Head: Atraumatic, Normocephalic Neck: Normal Inspection, Supple, Non-Tender Respiratory/Chest: Rhonchi Cardiovascular: Normal Peripheral Pulses, Regular Rate, Rhythm, No Edema, No Gallop Peripheral Pulses: 1+: Carotid (R) GI/Abdominal: Normal Bowel Sounds (Female) Exam: Deferred Rectal (Female) Exam: Deferred Back Exam: Normal Inspection, Full Range of Motion Extremities: Normal Inspection, Normal Range of Motion Neurological: Alert, Oriented, CN II-XII Intact Psychiatric: Normal Affect, Normal Mood Skin Exam: Warm, Dry, Intact, Normal Color, No Rash Lymphatic: No Adenopathy Course - Vital Signs Text/Narrative:: 34 y.o w f -smoker-with a H/o endocarditis, 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 No SOB or chest pain or any other acute med issues. BP 114/70 RR 15 Pulse ox 95% on RA temp 36.8 Pulse 85 PE: WNWD W F with a prod cough and RUQ abd. pain Labs: CBC, BMP nl ALT>AST, however Imaging: Not indicated Impression: Acute on chronic bronchitis, chronic intermittent left shoulder pain Tx: Bactim DSm Duo neb Reexam: Improved Plan: D/C with instructions Last Recorded V/S: Last Vital Signs Temp 36.3 C 06/07/19 20:20 Pulse 90 06/07/19 20:20 Resp 16 06/07/19 20:20 BP 115/59 L 06/07/19 20:20 Pulse Ox 99 06/07/19 20:20 - Orders/Labs/Meds Orders: Active Orders 24 hr Category Date Time Status RT Aerosol Therapy [RC] ASDIRECTED Care 06/07/19 19:27 Active Labs: Laboratory Tests 06/07/19 06/07/19 06/07/19 Range/Units 19:42 19:42 19:42 WBC 5.2 (4.5-12.0) X10-3/uL RBC 4.05 (3.23-5.20) x10(6)uL Hgb 13.3 (11.5-15.5) g/dL Hct 38.2 (30.0-51.3) % MCV 94.4 (80-96) fL MCH 32.8 (27.7-33.6) pg MCHC 34.8 (32.2-35.4) g/dL RDW 13.2 (11.5-15.5) % Plt Count 128 (125-369) X10(3)uL MPV 8.5 (7.4-10.4) fL Neut % (Auto) 63.8 (46-82) % Lymph % (Auto) 26.3 (13-37) % [place] % (Auto) 6.8 (4-12) % Eos % (Auto) 3 (1.0-5.0) % Baso % (Auto) 1 (0-2) % Neut # (Auto) 3.3 (1.6-8.3) # Lymph # (Auto) 1.4 (0.6-5.0) # [place] # (Auto) 0.4 (0.0-1.3) # Eos # (Auto) 0.1 (0.0-0.8) # Baso # (Auto) 0.0 (0.0-0.2) # Sodium 141 (135-145) mmol/L Potassium 3.5 (3.5-5.3) mmol/L Chloride 104 (100-110) mmol/L Carbon Dioxide 30 (21-32) mmol/L BUN 15 (7-18) mg/dL Creatinine 0.9 (0.55-1.02) mg/dL Est Cr Clr Drug Dosing TNP Estimated GFR (MDRD) > 60 (>60) BUN/Creatinine Ratio 16.7 (9-20) Glucose 95 (80-116) mg/dL Calcium 8.6 (8.6-10.2) mg/dL Total Bilirubin 0.3 (0.1-1.3) mg/dL Direct Bilirubin 0.08 L (0.10-0.20) mg/dL AST 32 H (5-25) IU/L ALT 66 H (12-36) U/L Alkaline Phosphatase 108 (56-112) IU/L Total Protein 7.0 (6.0-8.0) g/dL Albumin 3.3 L (3.5-5.2) g/dL Lipase 114 (73-393) U/L Meds: Medications Discontinued Medications Generic Name Dose Route Start Last Admin Trade Name Maryann PRN Reason Stop Dose Admin Albuterol/Ipratropium 3 ml 06/07/19 19:26 06/07/19 19:31 Duoneb 3.0-0.5 Mg/3 Ml NEB 06/07/19 19:27 3 ml ONETIME ONE Administration Morphine Sulfate Confirm 06/07/19 19:39 06/07/19 20:13 Morphine Administered 06/07/19 19:40 Not Given Dose 2 mg .ROUTE .STK-MED ONE Trimethoprim/Sulfamethoxazole 1 tab 06/07/19 20:19 06/07/19 20:24 Septra Ds PO 06/07/19 20:20 1 tab ONETIME STA Administration Departure - Departure Time of Disposition: 20:22 Disposition: Home, Self-Care 01 Condition: Good Clinical Impression: Shoulder pain, left, Bronchitis - Discharge Information Prescriptions: Sulfamethoxazole/Trimethoprim [Bactrim Ds Tablet] 1 each PO BID #20 tablet Instructions: Albuterol inhalation aerosol Referrals: PCP,None [Primary Care Provider] - Forms: ED Department Discharge Additional Instructions: Please quit tobacco use, please take the inhaler and the Abx as recommended, please f/u with otho next week regarding your lef shoulder pain, please come back if your symptoms get worse acutely - My Orders Last 24 Hours: My Active Orders 06/07/19 19:27 RT Aerosol Therapy [RC] ASDIRECTED - Assessment/Plan Last 24 Hours: My Active Orders 06/07/19 19:27 RT Aerosol Therapy [RC] ASDIRECTED
== END 2019-06-07 20:35 | disposition home or self-care (01) ==
LOC: FB.ED 19:02
DX: J40 Bronchitis, not specified as acute or chronic (principal); M25.512 Pain in left shoulder; F17.200 Nicotine dependence, unspecified, uncomplicated; F41.9 Anxiety disorder, unspecified; F32.9 Major depressive disorder, single episode, unspecified; Z86.718 Personal history of other venous thrombosis and embolism; Z95.2 Presence of prosthetic heart valve; Z88.1 Allergy status to other antibiotic agents; Z88.0 Allergy status to penicillin; Z91.048 Other nonmedicinal substance allergy status; Z79.82 Long term (current) use of aspirin; Z79.899 Other long term (current) drug therapy
CPT/HCPCS: 36415; 80048; 80076; 83690; 85025; 94640; 99283; A9270; J7620-GY

== ENCOUNTER 2019-07-22 18:10 | Emergency (ER) | payer MEDICAID ==
--- NOTE | 2019-07-22 18:49 | EDM.PDOCBH ---
ED HPI GENERAL MEDICAL PROBLEM - General Chief Complaint: Behavioral/Psych Stated Complaint: HURTING SELF Time Seen by Provider: 07/22/19 18:46 Source of Information: Reports: Patient History Limitations: Reports: No Limitations - History of Present Illness INITIAL COMMENTS - FREE TEXT/NARRATIVE: 34-year-old female with history of anxiety and depression with history of self- harm who reports has been feeling really depressed for the past few days secondary to her significant other leaving her. She reports that she has been having thoughts of killing herself and she is also been cutting her arm. She tells me she has been thinking about walking into river or taking an overdose of her medications. She called her aunt to come to be with her tonight because she did not feel safe. She felt that she would "do something stupid" and either significantly harm herself or potentially even kill herself. She is quite tearful during the interview. She denies doing anything else to harm herself besides cutting her left forearm. She has taken her medications as directed. She has had no nausea or vomiting. She has not been sleeping well and she has not been eating well but she has been drinking liquids. She states that she feels very anxious and she feels quite helpless. She denies any pain other than her mental anguish and she reports that that is quite severe. She has had no recent illnesses. There are no other associated signs or symptoms. There are no other modifying factors. Onset: Other (2 days ago) Duration: Getting Worse Location: Reports: Other (Not applicable) Quality: Reports: Other (Not applicable) Severity: Severe Improves with: Reports: None Worsens with: Reports: None Context: Reports: Other (As above) Associated Symptoms: Reports: No Other Symptoms (Except as above) Treatments PUFF IRONER: Reports: Other (see below) (Nothing except her usual medications.) - Related Data Allergies Allergy/AdvReac Type Severity Reaction Status Date / Time adhesive tape Allergy Rash Verified 06/07/19 20:01 azithromycin Allergy Diarrhea Verified 06/07/19 20:01 [From Zithromax Z-Raza] cefazolin Allergy Diarrhea Verified 06/07/19 20:01 Penicillins Allergy Diarrhea Verified 06/07/19 20:01 Home Meds: Home Meds Methocarbamol 500 mg PO Q12HR PRN 11/09/18 [History] QUEtiapine Fumarate [Quetiapine Fumarate] 50 mg PO ,14 11/09/18 [History] Aspirin 81 mg PO DAILY 01/14/19 [History] QUEtiapine Fumarate [Quetiapine Fumarate] 250 mg PO BEDTIME 01/14/19 [History] Ibuprofen 800 mg PO BID PRN 06/07/19 [History] Prazosin HCl [Prazosin] 2 mg PO BEDTIME 06/07/19 [History] Amitriptyline [Elavil] 25 mg PO BEDTIME 07/22/19 [History] Cyclobenzaprine [Flexeril] 10 mg PO BEDTIME 07/22/19 [History] Diclofenac Sodium [Voltaren] 75 mg PO BIDMEALS 07/22/19 [History] Mirtazapine 30 mg PO BEDTIME 07/22/19 [History] Montelukast [Singulair] 10 mg PO DAILY 07/22/19 [History] Pantoprazole [ProTONIX] 40 mg PO DAILY 07/22/19 [History] Pregabalin 50 mg PO BID 07/22/19 [History] Sennosides/Docusate Sodium [Senna-S] 8.6 mg PO DAILY 07/22/19 [History] Past Medical History HEENT History: Reports: Allergic Rhinitis Cardiovascular History: Reports: Bacterial Endocarditis, Blood Clots/VTE/DVT, Heart Valve Replacement, Other (See Below) Other Cardiovascular History: endocarditis 11/2016, open heart surgery 10/07/18, [employer] Respiratory History: Reports: PE Gastrointestinal History: Reports: GERD, Hepatitis, Other (See Below) Other Gastrointestinal History: Hepatitis C, ASCITES Genitourinary History: Reports: Acute Renal Failure, Dialysis, Renal Disease Other Genitourinary History: DIALYSIS, LEEP PROCEDURE 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: Other (See Below) 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 History: Musculoskeletal History: Reports: Arthritis, Fibromyalgia Neurological History: Reports: CVA, Migraines Other Neuro History: 4 mini strokes Psychiatric History: Reports: ADHD, Addiction, Anxiety, Bipolar, Depression, Psych Hospitalization(s), Suicide Attempt Endocrine/Metabolic History: Reports: Hypothyroidism Hematologic History: Reports: Blood Transfusion(s), Other (See Below) Other Hematologic History: VITAMIN E DEFICIENCY Immunologic History: Reports: Other (See Below) Other Immunologic History: HEPATITIS C Dermatologic History: Reports: Cellulitis - Infectious Disease History Infectious Disease History: Reports: Hepatitis C - Past Surgical History HEENT Surgical History: Reports: Oral Surgery Cardiovascular Surgical History: Reports: Valve Replacement GI Surgical History: Reports: Colonoscopy, EGD Female Surgical History: Reports: Breast Biopsy, D&C, Hysterectomy, Tubal Ligation Musculoskeletal Surgical History: Reports: Other (See Below) Other Musculoskeletal Surgeries/Procedures:: Ganglion cyst removal of left foot Social & Family History - Tobacco Use Smoking Status *Q: Current Every Day Smoker - Caffeine Use Caffeine Use: Reports: Energy Drinks, Soda - Alcohol Use Alcohol Use History: No - Recreational Drug Use Recreational Drug Use: Yes Recreational Drug Use Comment: 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 - Living Situation & Occupation Social History Comment: She is here with her aunt. ED ROS GENERAL - Review of Systems Review Of Systems: See Below Constitutional: Reports: No Symptoms HEENT: Reports: No Symptoms Respiratory: Reports: No Symptoms Cardiovascular: Reports: No Symptoms Endocrine: Reports: No Symptoms GI/Abdominal: Reports: No Symptoms : Reports: No Symptoms Musculoskeletal: Reports: No Symptoms Skin: Reports: Wound (Abrasions on her left forearm which are self-inflicted) Neurological: Reports: No Symptoms Psychiatric: Reports: Anxiety, Depression, Suicidal Ideation Hematologic/Lymphatic: Reports: No Symptoms Immunologic: Reports: No Symptoms ED EXAM, BEHAVIORAL HEALTH - Physical Exam Exam: See Below Exam Limited By: No Limitations General Appearance: Alert, WD/WN, Anxious, Moderate Distress (Crying. Emotional distress) Eye Exam: Bilateral Eye: EOMI, Normal Inspection, PERRL Ears: Normal External Exam, Hearing Grossly Normal Nose: Normal Inspection, Normal Mucosa, No Blood Throat/Mouth: Normal Inspection, Normal Oropharynx, Normal Voice, No Airway Compromise Head: Atraumatic, Normocephalic Neck: Normal Inspection, Supple, Non-Tender, Full Range of Motion Respiratory/Chest: No Respiratory Distress, Lungs Clear, Normal Breath Sounds, No Accessory Muscle Use, Chest Non-Tender Cardiovascular: Normal Peripheral Pulses, Regular Rate, Rhythm, No Murmur GI/Abdominal: Normal Bowel Sounds, Soft, Non-Tender, No Mass Back Exam: Normal Inspection, Full Range of Motion Extremities: Normal Inspection, Normal Range of Motion, Non-Tender, No Pedal Edema, Normal Capillary Refill Neurological: Alert, CN II-XII Intact, Normal Cognition, No Motor/Sensory Deficits, Oriented x 3 Psychiatric: Alert, Depressed Mood, Tearful, Suicidal Plan, Suicidal Thoughts Skin Exam: Warm, Dry, Intact, Normal color, No rash COURSE, BEHAVIORAL HEALTH COMP - Course Vital Signs: Last Vital Signs Temp 36.7 C 07/22/19 18:30 Pulse 84 07/22/19 18:30 Resp 14 07/22/19 18:30 BP 143/86 H 07/22/19 18:30 Pulse Ox 100 07/22/19 18:30 Orders, Labs, Meds: Active Orders 24 hr Category Date Time Status DRUG SCREEN, URINE ALERE [URCHEM] Stat Lab 07/22/19 19:00 Ordered HCG QUALITATIVE,URINE [URCHEM] Stat Lab 07/22/19 19:00 Ordered Laboratory Tests 07/22/19 07/22/19 07/22/19 Range/Units 19:00 19:00 19:17 WBC 8.5 (4.5-12.0) X10-3/uL RBC 4.17 (3.23-5.20) x10(6)uL Hgb 13.5 (11.5-15.5) g/dL Hct 38.9 (30.0-51.3) % MCV 93.4 (80-96) fL MCH 32.4 (27.7-33.6) pg MCHC 34.6 (32.2-35.4) g/dL RDW 12.3 (11.5-15.5) % Plt Count 190 (125-369) X10(3)uL MPV 7.4 (7.4-10.4) fL Neut % (Auto) 74.3 (46-82) % Lymph % (Auto) 18.8 (13-37) % [place] % (Auto) 4.7 (4-12) % Eos % (Auto) 2 (1.0-5.0) % Baso % (Auto) 0 (0-2) % Neut # (Auto) 6.3 (1.6-8.3) # Lymph # (Auto) 1.6 (0.6-5.0) # [place] # (Auto) 0.4 (0.0-1.3) # Eos # (Auto) 0.2 (0.0-0.8) # Baso # (Auto) 0.0 (0.0-0.2) # Sodium (135-145) mmol/L Potassium (3.5-5.3) mmol/L Chloride (100-110) mmol/L Carbon Dioxide (21-32) mmol/L BUN (7-18) mg/dL Creatinine (0.55-1.02) mg/dL Est Cr Clr Drug Dosing Estimated GFR (MDRD) (>60) BUN/Creatinine Ratio (9-20) Glucose (80-116) mg/dL Calcium (8.6-10.2) mg/dL Total Bilirubin (0.1-1.3) mg/dL AST (5-25) IU/L ALT (12-36) U/L Alkaline Phosphatase (56-112) IU/L Total Protein (6.0-8.0) g/dL Albumin (3.5-5.2) g/dL Globulin g/dL Albumin/Globulin Ratio TSH, Ultra Sensitive (0.36-3.74) IU/mL Urine HCG, Qual Negative (NEGATIVE) Salicylates (<2.8) mg/dL Urine Opiates Screen Negative (NEGATIVE) Ur Oxycodone Screen Negative (NEGATIVE) Ur Propoxyphene Screen Negative (NEGATIVE) Acetaminophen (<2) ug/mL Ur Barbituates Screen Negative (NEGATIVE) Ur Tricyclics Screen Positive H (NEGATIVE) Ur Phencyclidine Scrn Negative (NEGATIVE) Ur Amphetamine Screen Negative (NEGATIVE) Urine MDMA Screen Negative (NEGATIVE) U Benzodiazepines Scrn Negative (NEGATIVE) U Cocaine Metab Screen Negative (NEGATIVE) U Marijuana (THC) Screen Negative (NEGATIVE) Ethyl Alcohol (<0.03) % 07/22/19 07/22/19 Range/Units 19:17 19:17 WBC (4.5-12.0) X10-3/uL RBC (3.23-5.20) x10(6)uL Hgb (11.5-15.5) g/dL Hct (30.0-51.3) % MCV (80-96) fL MCH (27.7-33.6) pg MCHC (32.2-35.4) g/dL RDW (11.5-15.5) % Plt Count (125-369) X10(3)uL MPV (7.4-10.4) fL Neut % (Auto) (46-82) % Lymph % (Auto) (13-37) % [place] % (Auto) (4-12) % Eos % (Auto) (1.0-5.0) % Baso % (Auto) (0-2) % Neut # (Auto) (1.6-8.3) # Lymph # (Auto) (0.6-5.0) # [place] # (Auto) (0.0-1.3) # Eos # (Auto) (0.0-0.8) # Baso # (Auto) (0.0-0.2) # Sodium 139 (135-145) mmol/L Potassium 3.6 (3.5-5.3) mmol/L Chloride 102 (100-110) mmol/L Carbon Dioxide 29 (21-32) mmol/L BUN 8 (7-18) mg/dL Creatinine 0.9 (0.55-1.02) mg/dL Est Cr Clr Drug Dosing TNP Estimated GFR (MDRD) > 60 (>60) BUN/Creatinine Ratio 8.9 L (9-20) Glucose 95 (80-116) mg/dL Calcium 9.0 (8.6-10.2) mg/dL Total Bilirubin 0.3 (0.1-1.3) mg/dL AST 29 H (5-25) IU/L ALT 62 H (12-36) U/L Alkaline Phosphatase 78 (56-112) IU/L Total Protein 7.5 (6.0-8.0) g/dL Albumin 3.7 (3.5-5.2) g/dL Globulin 3.8 g/dL Albumin/Globulin Ratio 1.0 TSH, Ultra Sensitive 1.51 (0.36-3.74) IU/mL Urine HCG, Qual (NEGATIVE) Salicylates 4.0 (<2.8) mg/dL Urine Opiates Screen (NEGATIVE) Ur Oxycodone Screen (NEGATIVE) Ur Propoxyphene Screen (NEGATIVE) Acetaminophen < 2 L (<2) ug/mL Ur Barbituates Screen (NEGATIVE) Ur Tricyclics Screen (NEGATIVE) Ur Phencyclidine Scrn (NEGATIVE) Ur Amphetamine Screen (NEGATIVE) Urine MDMA Screen (NEGATIVE) U Benzodiazepines Scrn (NEGATIVE) U Cocaine Metab Screen (NEGATIVE) U Marijuana (THC) Screen (NEGATIVE) Ethyl Alcohol < 0.03 (<0.03) % Medications Discontinued Medications Generic Name Dose Route Start Last Admin Trade Name Maryann PRN Reason Stop Dose Admin Hydroxyzine HCl 50 mg 07/22/19 19:01 07/22/19 19:37 Vistaril IM 07/22/19 19:02 50 mg ONETIME ONE Administration Lorazepam 1 mg 07/22/19 21:11 07/22/19 22:20 Ativan PO 07/22/19 21:12 1 mg ONETIME ONE Administration Re-Assessment/Re-Exam: 21:15 hrs: The patient reports she received a little relief of her anxiety from the hydroxyzine IM. I have ordered Ativan 1 mg by mouth. She is intermittently tearful and quiet with some restlessness and pacing but she is calm and cooperative. She has a history of self-harm and depression with significant depression at this point and I feel that she represents a danger to herself and suicide risk and will need inpatient psychiatric admission and acute intervention. We have been attempting placement at a psychiatric facility. [facility] had no beds available. We are currently checking [facility] in [place] and [facility] in [place] as well. 22:15 hrs: [facility] cannot accept the patient. The patient has interviewed at [facility] in [place] and we will await their deliberation. 23:10 hrs: Dr. Ann, psychiatrist at [facility] in [place], has accepted the patient. The patient voluntarily agreeing to admission at [facility] and a family friend will take the patient via private vehicle to [facility] for admission to their facility. Departure - Departure Time of Disposition: 23:15 Disposition: DC/Tfer to Psych Hosp/Unit 65 Condition: Fair Clinical Impression: Anxiety, Suicidal ideation, Intentional self-harm Depression Qualifiers: Depression Type: unspecified Qualified Code(s): F32.9 - Major depressive disorder, single episode, unspecified - Discharge Information Referrals: Kelsie Aragon PA-C [Primary Care Provider] - Forms: ED Department Discharge Additional Instructions: Go directly to the [facility] unit in [place] for admission. - My Orders Last 24 Hours: My Active Orders 07/22/19 19:00 DRUG SCREEN, URINE ALERE [URCHEM] Stat HCG QUALITATIVE,URINE [URCHEM] Stat - Assessment/Plan Last 24 Hours: My Active Orders 07/22/19 19:00 DRUG SCREEN, URINE ALERE [URCHEM] Stat HCG QUALITATIVE,URINE [URCHEM] Stat
[2019-07-22] MEDS: hydrOXYzine HCl 50 MG/ML SDV IM ONE (19:37)
[2019-07-22 19:39] LABS: ACETAMINOPHEN < 2 ug/mL (<2)
[2019-07-22] MEDS: LORazepam 1 MG Tab PO ONE (22:20)
== END 2019-07-22 23:27 ==
LOC: FB.ED 18:10
DX: F32.9 Major depressive disorder, single episode, unspecified (principal); F41.9 Anxiety disorder, unspecified; F17.200 Nicotine dependence, unspecified, uncomplicated; K21.9 Gastro-esophageal reflux disease without esophagitis; Z86.73 Personal history of transient ischemic attack (TIA), and cerebral infarction without residual deficits; Z79.82 Long term (current) use of aspirin; Z79.899 Other long term (current) drug therapy; Z91.09 Other allergy status, other than to drugs and biological substances; Z88.0 Allergy status to penicillin; Z88.1 Allergy status to other antibiotic agents
CPT/HCPCS: 36415; 80053; 80305-QW; 81025; 84443; 85025; 96372; 99284; A9270-GY; G0480; J3410

== ENCOUNTER 2019-07-28 18:45 | Emergency (ER) | payer MEDICAID ==
--- NOTE | 2019-07-28 19:40 | EDM.PDOC ---
ED HPI GENERAL MEDICAL PROBLEM - General Chief Complaint: Upper Extremity Injury/Pain Stated Complaint: HURT RT HAND Time Seen by Provider: 07/28/19 19:37 Source of Information: Reports: Patient History Limitations: Reports: No Limitations - History of Present Illness INITIAL COMMENTS - FREE TEXT/NARRATIVE: Patient struck her right hand against a coffee table yesterday, complains of right hand pain and swelling. She is right hand dominant. Onset Date: 07/27/19 Location: Reports: Upper Extremity, Right Quality: Reports: Dull Severity: Moderate - Related Data Allergies Allergy/AdvReac Type Severity Reaction Status Date / Time adhesive tape Allergy Rash Verified 06/07/19 20:01 azithromycin Allergy Diarrhea Verified 06/07/19 20:01 [From Zithromax Z-Raza] cefazolin Allergy Diarrhea Verified 06/07/19 20:01 Penicillins Allergy Diarrhea Verified 06/07/19 20:01 Home Meds: Home Meds Methocarbamol 500 mg PO Q12HR PRN 11/09/18 [History] QUEtiapine Fumarate [Quetiapine Fumarate] 50 mg PO 08,14 11/09/18 [History] Aspirin 81 mg PO DAILY 01/14/19 [History] QUEtiapine Fumarate [Quetiapine Fumarate] 250 mg PO BEDTIME 01/14/19 [History] Ibuprofen 800 mg PO BID PRN 06/07/19 [History] Prazosin HCl [Prazosin] 2 mg PO BEDTIME 06/07/19 [History] Amitriptyline [Elavil] 25 mg PO BEDTIME 07/22/19 [History] Cyclobenzaprine [Flexeril] 10 mg PO BEDTIME 07/22/19 [History] Diclofenac Sodium [Voltaren] 75 mg PO BIDMEALS 07/22/19 [History] Mirtazapine 30 mg PO BEDTIME 07/22/19 [History] Montelukast [Singulair] 10 mg PO DAILY 07/22/19 [History] Pantoprazole [ProTONIX] 40 mg PO DAILY 07/22/19 [History] Pregabalin 50 mg PO BID 07/22/19 [History] Sennosides/Docusate Sodium [Senna-S] 8.6 mg PO DAILY 07/22/19 [History] Past Medical History HEENT History: Reports: Allergic Rhinitis Cardiovascular History: Reports: Bacterial Endocarditis, Blood Clots/VTE/DVT, Heart Valve Replacement, Other (See Below) Other Cardiovascular History: endocarditis 11/2016, open heart surgery 10/07/18, [employer] Respiratory History: Reports: PE Gastrointestinal History: Reports: GERD, Hepatitis, Other (See Below) Other Gastrointestinal History: Hepatitis C, ASCITES Genitourinary History: Reports: Acute Renal Failure, Dialysis, Renal Disease Other Genitourinary History: DIALYSIS, LEEP PROCEDURE 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 Endocrine/Metabolic History: Reports: Hypothyroidism Hematologic History: Reports: Blood Transfusion(s), Other (See Below) Other Hematologic History: VITAMIN E DEFICIENCY Immunologic History: Reports: Other (See Below) Other Immunologic History: HEPATITIS C Dermatologic History: Reports: Cellulitis - Infectious Disease History Infectious Disease History: Reports: Hepatitis C - Past Surgical History HEENT Surgical History: Reports: Oral Surgery Cardiovascular Surgical History: Reports: Valve Replacement GI Surgical History: Reports: Colonoscopy, EGD Female Surgical History: Reports: Breast Biopsy, D&C, Hysterectomy, Tubal Ligation Musculoskeletal Surgical History: Reports: Other (See Below) Other Musculoskeletal Surgeries/Procedures:: Ganglion cyst removal of left foot Social & Family History - Family History Family Medical History: Noncontributory - Caffeine Use Caffeine Use: Reports: Energy Drinks, Soda - Living Situation & Occupation Living situation: Reports: with Significant Other Review of Systems - Review of Systems Review Of Systems: Comprehensive ROS is negative, except as noted in HPI. ED EXAM, GENERAL - Physical Exam Exam: See Below Exam Limited By: No Limitations General Appearance: Alert, WD/WN, No Apparent Distress Ears: Normal External Exam Throat/Mouth: No Airway Compromise Head: Atraumatic, Normocephalic Respiratory/Chest: No Respiratory Distress Peripheral Pulses: 2+: Radial (R) Extremities: Normal Capillary Refill, Other (tenderness, ecchymosis and swelling to dorsum of right hand, limited ROM due to pain) Neurological: Alert, Normal Cognition, No Motor/Sensory Deficits Psychiatric: Normal Affect, Normal Mood Skin Exam: Warm, Dry, Intact Course - Vital Signs Text/Narrative:: T97.9, BP 117/71, HR 89, Sa02 98% RA - Orders/Labs/Meds Orders: Active Orders 24 hr Category Date Time Status Hand Comp Min 3V Rt [CR] Stat Exams 07/28/19 19:36 Taken - Radiology Interpretation Free Text/Narrative:: Right Hand XR: No osseous abnormality. (ED provider interpretation) Departure - Departure Time of Disposition: 20:15 Disposition: Home, Self-Care 01 Condition: Good Clinical Impression: Contusion of hand, right Qualifiers: Encounter type: initial encounter Qualified Code(s): S60.221A - Contusion of right hand, initial encounter - Discharge Information *PRESCRIPTION DRUG MONITORING PROGRAM REVIEWED*: No *COPY OF PRESCRIPTION DRUG MONITORING REPORT IN PATIENT JOLLY: Not Applicable Instructions: Contusion, [id number] Referrals: Augie Hawk MD [Primary Care Provider] - Forms: ED Department Discharge Additional Instructions: Take Ibuprofen or Tylenol as needed. Follow up with your primary physician in 3- 4 days if symptoms don't improve. - My Orders Last 24 Hours: My Active Orders 07/28/19 19:36 Hand Comp Min 3V Rt [CR] Stat - Assessment/Plan Last 24 Hours: My Active Orders 07/28/19 19:36 Hand Comp Min 3V Rt [CR] Stat
== END 2019-07-28 20:30 | disposition home or self-care (01) ==
LOC: FB.ED 18:45
DX: S60.221A Contusion of right hand, initial encounter (principal); K21.9 Gastro-esophageal reflux disease without esophagitis; Z91.048 Other nonmedicinal substance allergy status; Z88.1 Allergy status to other antibiotic agents; Z88.0 Allergy status to penicillin; Z79.82 Long term (current) use of aspirin; Z79.899 Other long term (current) drug therapy; Z86.73 Personal history of transient ischemic attack (TIA), and cerebral infarction without residual deficits; W22.03XA Walked into furniture, initial encounter
CPT/HCPCS: 73130-RT; 99283-25

== ENCOUNTER 2021-04-05 18:35 | Emergency (ER) | payer MEDICAID ==
--- NOTE | 2021-04-05 19:31 | EDM.PDOC ---
ED HPI GENERAL MEDICAL PROBLEM - General Chief Complaint: Lower Extremity Injury/Pain Stated Complaint: POSSIBLE BROKEN LEFT ANKLE Time Seen by Provider: 04/05/21 19:10 Source of Information: Reports: Patient - History of Present Illness INITIAL COMMENTS - FREE TEXT/NARRATIVE: 35-year-old lady came to the emergency department for evaluation of left ankle pain. He states that at approximately 11 AM this morning she tried to sit on the trunk of a car but slid off the trunk to the ground and inverted her ankle. She had immediate significant pain and had difficulty bearing any weight. She states that she waited until now to come to the emergency department because she had to get some things in order, and because after taking Tylenol she still has significant pain. Onset: Sudden Left Ankle Pain Score (Numeric/FACES): 10 - Related Data Allergies Allergy/AdvReac Type Severity Reaction Status Date / Time adhesive tape Allergy Rash Verified 08/02/19 17:48 azithromycin Allergy Diarrhea Verified 08/02/19 17:48 [From Zithromax Z-Raza] cefazolin Allergy Diarrhea Verified 08/02/19 17:48 Penicillins Allergy Diarrhea Verified 08/02/19 17:48 Home Meds: Home Meds methocarbamoL [Methocarbamol] 500 mg PO Q12HR PRN 11/09/18 [History] Aspirin 81 mg PO DAILY 01/14/19 [History] Ibuprofen 800 mg PO BID PRN 06/07/19 [History] Prazosin HCl [Prazosin] 2 mg PO BEDTIME 06/07/19 [History] Amitriptyline [Elavil] 25 mg PO BEDTIME 07/22/19 [History] Cyclobenzaprine [Flexeril] 10 mg PO BEDTIME 07/22/19 [History] Diclofenac Sodium [Voltaren] 75 mg PO BIDMEALS 07/22/19 [History] Mirtazapine 30 mg PO BEDTIME 07/22/19 [History] Montelukast [Singulair] 10 mg PO DAILY 07/22/19 [History] Pantoprazole [ProTONIX] 40 mg PO DAILY 07/22/19 [History] Pregabalin 50 mg PO BID 07/22/19 [History] Sennosides/Docusate Sodium [Senna-S] 8.6 mg PO DAILY 07/22/19 [History] QUEtiapine Fumarate [Quetiapine Fumarate] 75 mg PO 08,14 08/02/19 [History] QUEtiapine Fumarate [Quetiapine Fumarate] 300 mg PO BEDTIME 08/02/19 [History] Past Medical History HEENT History: Reports: Allergic Rhinitis Cardiovascular History: Reports: Bacterial Endocarditis, Blood Clots/VTE/DVT, Heart Valve Replacement, Other (See Below) Other Cardiovascular History: endocarditis 11/2016, open heart surgery 10/07/18, [employer] Respiratory History: Reports: PE Gastrointestinal History: Reports: GERD, Hepatitis, Other (See Below) Other Gastrointestinal History: Hepatitis C, ASCITES Genitourinary History: Reports: Acute Renal Failure, Dialysis, Renal Disease Other Genitourinary History: DIALYSIS, LEEP PROCEDURE 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 Endocrine/Metabolic History: Reports: Hypothyroidism Hematologic History: Reports: Blood Transfusion(s), Other (See Below) Other Hematologic History: VITAMIN E DEFICIENCY Immunologic History: Reports: Other (See Below) Other Immunologic History: HEPATITIS C Dermatologic History: Reports: Cellulitis - Infectious Disease History Infectious Disease History: Reports: Hepatitis C - Past Surgical History HEENT Surgical History: Reports: Oral Surgery Cardiovascular Surgical History: Reports: Valve Replacement GI Surgical History: Reports: Colonoscopy, EGD Other GI Surgeries/Procedures: ascites Female Surgical History: Reports: Breast Biopsy, D&C, Hysterectomy, Tubal Ligation Musculoskeletal Surgical History: Reports: Other (See Below) Other Musculoskeletal Surgeries/Procedures:: Ganglion cyst removal of left foot Social & Family History - Family History Family Medical History: No Pertinent Family History - Tobacco Use Tobacco Use Status *Q: Current Every Day Tobacco User Years of Tobacco use: 22 Packs/Tins Daily: 0.3 - Caffeine Use Caffeine Use: Reports: Coffee, Energy Drinks, Soda - Recreational Drug Use Recreational Drug Use: Yes Drug Use in Last 12 Months: Yes - Living Situation & Occupation Living situation: Reports: with Significant Other Review of Systems - Review of Systems Review Of Systems: See Below Constitutional: Reports: No Symptoms Eyes: Reports: No Symptoms Ears: Reports: No Symptoms Nose: Reports: No Symptoms Mouth/Throat: Reports: No Symptoms Respiratory: Reports: No Symptoms Cardiovascular: Reports: No Symptoms GI/Abdominal: Reports: No Symptoms Genitourinary: Reports: No Symptoms Musculoskeletal: Reports: Other (Left ankle pain, swelling) Skin: Reports: No Symptoms Neurological: Reports: No Symptoms Psychiatric: Reports: No Symptoms ED EXAM, GENERAL - Physical Exam Exam: See Below Free Text/Narrative:: Patient is extremely agitated and unable to sit still. She is older than her stated age. Patient is having significant difficulty holding still even during the physical exam. Visual inspection of the bilateral ankles show significant swelling with mild ecchymosis just inferior and anterior to the lateral malleolus on the left. Active range of motion testing of the ankles bilaterally: Range of motion limited on the left secondary to pain. Passive range of motion testing of the ankles bilaterally: Right ankle shows normal range of motion with flexion, extension, inversion, eversion, squeeze test is negative, anterior and posterior drawer test are negative. Left ankle shows decreased range of motion in all planes secondary to significant pain. Note that the patient is unable to relax and her ankle muscles are very stiff and difficult to move. Squeeze test is negative. There is tenderness to palpation over the lateral malleolus and proximal fifth tarsal. Sensation and pulses are intact bilaterally throughout both feet. Exam Limited By: No Limitations General Appearance: Alert, Anxious Respiratory/Chest: No Respiratory Distress Cardiovascular: Normal Peripheral Pulses, No Edema Peripheral Pulses: 2+: Posterior Tibial (L), Posterior Tibial (R), Dorsalis Pedis (L), Dorsalis Pedis (R) Extremities: Leg Pain. No: Deyanira's Sign Neurological: Other (Unable to sit still, difficulty relaxing for physical exam) Skin Exam: Warm, Dry, Intact Course - Vital Signs Text/Narrative:: Patient's physical exam consistent with ankle sprain via [place] ankle rules. X- ray was ordered. Patient stated she was in severe pain. I asked for a urine drug screen to determine if there were any substances involved in the patient's erratic behavior. Nursing explained to the patient that without a urine drug screen we would not be able to prescribe any pain medications. The patient immediately left AGAINST MEDICAL ADVICE without signing out. Patient was observed walking out of the emergency department and on video walking in the [facility] without a visible limp. Last Recorded V/S: Last Vital Signs Temp 37.2 C 04/05/21 19:03 Pulse 112 H 04/05/21 19:03 Resp 18 04/05/21 19:03 BP 135/85 04/05/21 19:03 Pulse Ox 97 04/05/21 19:03 - Orders/Labs/Meds Orders: Active Orders 24 hr Category Date Time Status DRUG SCREEN, URINE ALERE [URCHEM] Stat Lab 04/05/21 19:10 Ordered Departure - Departure Time of Disposition: 19:39 Disposition: Against Medical Advice 07 Condition: Undetermined Clinical Impression: Ankle pain, left - Discharge Information *PRESCRIPTION DRUG MONITORING PROGRAM REVIEWED*: Not Applicable *COPY OF PRESCRIPTION DRUG MONITORING REPORT IN PATIENT JOLLY: Not Applicable Forms: ED Department Discharge Additional Instructions: Patient left AGAINST MEDICAL ADVICE Sepsis Event Note (ED) - Evaluation Sepsis Screening Result: No Definite Risk - Focused Exam Vital Signs: Vital Signs Temp Pulse Resp BP Pulse Ox 04/05/21 19:03 37.2 C 112 H 18 135/85 97 - My Orders Last 24 Hours: My Active Orders 04/05/21 19:10 DRUG SCREEN, URINE ALERE [URCHEM] Stat - Assessment/Plan Last 24 Hours: My Active Orders 04/05/21 19:10 DRUG SCREEN, URINE ALERE [URCHEM] Stat
== END 2021-04-05 19:10 | disposition left against medical advice (07) ==
LOC: FB.ED 18:35
DX: M25.572 Pain in left ankle and joints of left foot (principal); I48.92 Unspecified atrial flutter; K21.9 Gastro-esophageal reflux disease without esophagitis; M19.90 Unspecified osteoarthritis, unspecified site; Z79.82 Long term (current) use of aspirin; Z79.899 Other long term (current) drug therapy; Z91.048 Other nonmedicinal substance allergy status; Z88.1 Allergy status to other antibiotic agents; Z88.0 Allergy status to penicillin
CPT/HCPCS: 99283

== ENCOUNTER 2021-08-07 20:03 | Emergency (ER) | payer OTHER, MEDICAID ==
--- NOTE | 2021-08-07 20:35 | EDM.PDOC ---
ED HPI GENERAL MEDICAL PROBLEM - General Stated Complaint: STICHES IN FOOT Time Seen by Provider: 08/07/21 20:12 Source of Information: Reports: Patient - History of Present Illness INITIAL COMMENTS - FREE TEXT/NARRATIVE: Patient had surgery approximately 1 week ago to remove what was thought to be a ganglionic cyst on the dorsum of her left foot. She states that the stitches are causing her significant irritation and some pain. She would like to have the stitches removed. She has no other concerns or complaints at this time. Asked her if she was able to contact her surgeon she says she was told that she could not be seen until August 12. - Related Data Allergies Allergy/AdvReac Type Severity Reaction Status Date / Time adhesive tape Allergy Rash Verified 08/02/19 17:48 azithromycin Allergy Diarrhea Verified 08/02/19 17:48 [From Zithromax Z-Raza] cefazolin Allergy Diarrhea Verified 08/02/19 17:48 Penicillins Allergy Diarrhea Verified 08/02/19 17:48 Home Meds: Home Meds methocarbamoL [Methocarbamol] 500 mg PO Q12HR PRN 11/09/18 [History] Aspirin 81 mg PO DAILY 01/14/19 [History] Ibuprofen 800 mg PO BID PRN 06/07/19 [History] Prazosin HCl [Prazosin] 2 mg PO BEDTIME 06/07/19 [History] Amitriptyline [Elavil] 25 mg PO BEDTIME 07/22/19 [History] Cyclobenzaprine [Flexeril] 10 mg PO BEDTIME 07/22/19 [History] Diclofenac Sodium [Voltaren] 75 mg PO BIDMEALS 07/22/19 [History] Mirtazapine 30 mg PO BEDTIME 07/22/19 [History] Montelukast [Singulair] 10 mg PO DAILY 07/22/19 [History] Pantoprazole [ProTONIX] 40 mg PO DAILY 07/22/19 [History] Pregabalin 50 mg PO BID 07/22/19 [History] Sennosides/Docusate Sodium [Senna-S] 8.6 mg PO DAILY 07/22/19 [History] QUEtiapine Fumarate [Quetiapine Fumarate] 75 mg PO 08,14 08/02/19 [History] QUEtiapine Fumarate [Quetiapine Fumarate] 300 mg PO BEDTIME 08/02/19 [History] Past Medical History HEENT History: Reports: Allergic Rhinitis Cardiovascular History: Reports: Bacterial Endocarditis, Blood Clots/VTE/DVT, Heart Valve Replacement, Other (See Below) Other Cardiovascular History: endocarditis 11/2016, open heart surgery 10/07/18, [employer] Respiratory History: Reports: PE Gastrointestinal History: Reports: GERD, Hepatitis, Other (See Below) Other Gastrointestinal History: Hepatitis C, ASCITES Genitourinary History: Reports: Acute Renal Failure, Dialysis, Renal Disease Other Genitourinary History: DIALYSIS, LEEP PROCEDURE 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 Endocrine/Metabolic History: Reports: Hypothyroidism Hematologic History: Reports: Blood Transfusion(s), Other (See Below) Other Hematologic History: VITAMIN E DEFICIENCY Immunologic History: Reports: Other (See Below) Other Immunologic History: HEPATITIS C Dermatologic History: Reports: Cellulitis - Infectious Disease History Infectious Disease History: Reports: Hepatitis C - Past Surgical History HEENT Surgical History: Reports: Oral Surgery Cardiovascular Surgical History: Reports: Valve Replacement GI Surgical History: Reports: Colonoscopy, EGD Other GI Surgeries/Procedures: ascites Female Surgical History: Reports: Breast Biopsy, D&C, Hysterectomy, Tubal Ligation Musculoskeletal Surgical History: Reports: Other (See Below) Other Musculoskeletal Surgeries/Procedures:: Ganglion cyst removal of left foot Social & Family History - Family History Family Medical History: No Pertinent Family History - Caffeine Use Caffeine Use: Reports: Coffee, Energy Drinks, Soda - Living Situation & Occupation Living situation: Reports: with Significant Other ED ROS GENERAL - Review of Systems Review Of Systems: See Below Constitutional: Reports: No Symptoms HEENT: Reports: No Symptoms Respiratory: Reports: No Symptoms Cardiovascular: Reports: No Symptoms Endocrine: Reports: No Symptoms GI/Abdominal: Reports: No Symptoms : Reports: No Symptoms Musculoskeletal: Reports: No Symptoms Skin: Reports: Other (Sutures to close surgical wound are irritating, itchy, mild pain) Neurological: Reports: No Symptoms Psychiatric: Reports: No Symptoms Hematologic/Lymphatic: Reports: No Symptoms Immunologic: Reports: No Symptoms ED EXAM, GENERAL - Physical Exam Exam: See Below Exam Limited By: No Limitations General Appearance: Alert, WD/WN, No Apparent Distress Eye Exam: Bilateral Eye: EOMI Head: Atraumatic, Normocephalic Respiratory/Chest: No Respiratory Distress, Lungs Clear Cardiovascular: Normal Peripheral Pulses, Regular Rate, Rhythm Back Exam: Normal Inspection Extremities: Normal Inspection Neurological: Alert, Oriented, CN II-XII Intact Psychiatric: Normal Affect, Normal Mood Skin Exam: Other (Approximately 4 cm surgical wound on the dorsum of the left foot, only mild erythema around the sutures, no dehiscence, no erythema, no discharge, no bleeding) Course - Vital Signs Text/Narrative:: 2 sutures were removed from surgical incision on the dorsal aspect of the left foot. There was no wound dehiscing, discharge, or bleeding. Patient states that she felt immediate relief and had more movement in her toes following suture removal. Station, range of motion, and capillary refill intact distally following procedure. Departure - Departure Time of Disposition: 21:26 Disposition: Home, Self-Care 01 Condition: Good Clinical Impression: Pain at surgical incision, Visit for suture removal Wound dehiscence, surgical Qualifiers: Encounter type: initial encounter Qualified Code(s): T81.31XA - Disruption of external operation (surgical) wound, not elsewhere classified, initial encounter - Discharge Information *PRESCRIPTION DRUG MONITORING PROGRAM REVIEWED*: Not Applicable *COPY OF PRESCRIPTION DRUG MONITORING REPORT IN PATIENT JOLLY: Not Applicable Referrals: Augie Hawk MD [Primary Care Provider] -
== END 2021-08-07 21:45 | disposition home or self-care (01) ==
LOC: FB.ED 20:03
DX: T81.31XA Disruption of external operation (surgical) wound, not elsewhere classified, initial encounter (principal); G89.18 Other acute postprocedural pain; K21.9 Gastro-esophageal reflux disease without esophagitis; E03.9 Hypothyroidism, unspecified; Z86.73 Personal history of transient ischemic attack (TIA), and cerebral infarction without residual deficits; Z91.040 Latex allergy status; Z88.0 Allergy status to penicillin; Z88.1 Allergy status to other antibiotic agents; Z88.8 Allergy status to other drugs, medicaments and biological substances; Z79.82 Long term (current) use of aspirin; Z79.899 Other long term (current) drug therapy; Z48.02 Encounter for removal of sutures
CPT/HCPCS: 99282

== ENCOUNTER 2021-09-27 10:10 | Emergency (ER) | payer MEDICAID, OTHER ==
[2021-09-27] MEDS ORDERED: Propofol 200 MG/20 ML SDV IV ONE (10:11)
[2021-09-27] MEDS ORDERED: Sodium Chloride 0.9% 1,000 ML IV SCH (11:00)
== END 2021-09-27 12:27 | disposition home or self-care (01) ==
LOC: FB.ED 10:10
DX: I48.92 Unspecified atrial flutter (principal); K21.9 Gastro-esophageal reflux disease without esophagitis; M19.90 Unspecified osteoarthritis, unspecified site; Z91.048 Other nonmedicinal substance allergy status; Z88.1 Allergy status to other antibiotic agents; Z88.0 Allergy status to penicillin; Z79.82 Long term (current) use of aspirin; Z79.899 Other long term (current) drug therapy
CPT/HCPCS: 92960; 99284; 99284-25; J2704

== ENCOUNTER 2021-12-08 19:01 | Emergency (ER) | payer MEDICAID, OTHER ==
[2021-12-08] MEDS ORDERED: Ketorolac 30 MG/ML SDV IM ONE (19:39)
[2021-12-08] MEDS ORDERED: hydrOXYzine HCl 50 MG/ML SDV IM ONE (19:39)
== END 2021-12-08 19:55 | disposition home or self-care (01) ==
LOC: FB.ED 19:01
DX: F19.90 Other psychoactive substance use, unspecified, uncomplicated (principal); Z86.73 Personal history of transient ischemic attack (TIA), and cerebral infarction without residual deficits; Z91.040 Latex allergy status; Z88.1 Allergy status to other antibiotic agents; Z88.0 Allergy status to penicillin; Z88.8 Allergy status to other drugs, medicaments and biological substances; Z79.82 Long term (current) use of aspirin; Z79.01 Long term (current) use of anticoagulants
CPT/HCPCS: 96372; 99283; 99284; J1885; J3410

== ENCOUNTER 2023-02-22 16:38 | Emergency (ER) | payer MEDICAID ==
[2023-02-22] MEDS ORDERED: Sodium Chloride 0.9% 10 ML Syringe FLUSH PRN (17:08)
[2023-02-22 17:19] LABS: BASOPHILS PERCENT AUTO 0.5 % (0.2-1.5); EOSINOPHILS ABSOLUTE AUTO 0.1 x10-3/uL (0.0-0.8); HEMATOCRIT 38.1 % (34.2-48.2); HEMOGLOBIN 12.5 g/dL (11.4-15.5); LYMPHOCYTES ABSOLUTE AUTO 1.1 x10-3/uL (1.0-4.4); LYMPHOCYTES PERCENT AUTO 16.3 % (18.4-52.1); MEAN CORPUSCULAR HEMOGLOBIN 29.9 pg (23.9-33.9); MEAN CORPUSCULAR HGB CONC 32.8 g/dL (31.9-34.8); MEAN CORPUSCULAR VOLUME 91.2 fL (76.7-100.5); MEAN PLATELET VOLUME 9.2 fL (7.1-12.4); MONOCYTES ABSOLUTE AUTO 0.4 x10-3/uL (0.3-1.0); MONOCYTES PERCENT AUTO 6.3 % (4.4-15.7); NEUTROPHILS PERCENT AUTO 74.9 % (30.8-76.2); PLATELET COUNT,PLT 158 x10(3)uL (151-488); RED BLOOD CELL COUNT 4.18 x10(6)uL (3.60-5.20); RED CELL DISTRIBUTION WIDTH 15.5 % (12.3-16.5); WHITE BLOOD CELL COUNT,WBC 6.7 x10-3/uL (3.0-10.3)
[2023-02-22 17:26] LABS: BLOOD UREA NITROGEN,BUN 17 mg/dL (7-18); BUN/CREATININE RATIO 21.3 (9-20); CALCIUM 8.7 mg/dL (8.6-10.2); CARBON DIOXIDE,CO2 27 mmol/L (21-32); CHLORIDE,CL 103 mmol/L (100-110); CREATININE 0.8 mg/dL (0.55-1.02); EST CRCL DRUG DOSING (CG) 82.33 mL/min; ESTIMATED GFR 97 mL/min (>60); GLUCOSE RANDOM 105 mg/dL (80-116); POTASSIUM,K 3.9 mmol/L (3.5-5.3); SODIUM,NA 139 mmol/L (135-145)
[2023-02-22 17:31] LABS: D-DIMER QUANTITATIVE 0.96 mg/LFEU (0.0-0.59)
[2023-02-22 17:33] LABS: INR 3.87 (1.00-1.24)
[2023-02-22 17:40] LABS: ALANINE AMINOTRANSFERASE,ALT 47 U/L (12-36); ALBUMIN 3.6 g/dL (3.5-5.2); ALKALINE PHOSPHATASE 113 IU/L (56-112); ASPARTATE AMNIOTRANSFERASE,AST 38 IU/L (5-25); BILIRUBIN TOTAL 0.5 mg/dL (0.1-1.3); MAGNESIUM 1.7 mg/dL (1.8-2.5); PROTEIN TOTAL,TP 7.3 g/dL (6.0-8.0); PROTHROMBIN TIME 38.3 sec (9.0-11.1)
[2023-02-22] MEDS ORDERED: Iopamidol 755 Mg/ML 100 ML Bottle IV SCH (18:30)
== END 2023-02-22 19:30 | disposition left against medical advice (07) ==
LOC: FB.ED 16:38
DX: I48.92 Unspecified atrial flutter (principal); Z72.0 Tobacco use; Z88.1 Allergy status to other antibiotic agents; Z86.718 Personal history of other venous thrombosis and embolism; Z79.01 Long term (current) use of anticoagulants; Z79.899 Other long term (current) drug therapy; Z91.048 Other nonmedicinal substance allergy status
CPT/HCPCS: 36415; 71275; 80053; 83735; 84484; 85025; 85379; 85610; 93005; 99285; J3490; Q9967

== ENCOUNTER 2025-01-04 22:05 | Emergency (ER) | payer MEDICAID | END 2025-01-04 22:22 | disposition home or self-care (01) | LOC: FB.ED 22:05 | DX: S61.012A Laceration without foreign body of left thumb without damage to nail, initial encounter (principal); Z88.0 Allergy status to penicillin; Z88.8 Allergy status to other drugs, medicaments and biological substances; Z79.899 Other long term (current) drug therapy; Z86.16 Personal history of COVID-19; Z90.710 Acquired absence of both cervix and uterus; Y28.9XXA Contact with unspecified sharp object, undetermined intent, initial encounter | CPT/HCPCS: 99282 ==